=== PATIENT | female | born 1940 | race African-American/Black ===

== ENCOUNTER 2019-01-31 03:22 | Inpatient (IN) | payer MEDICARE, MEDICAID ==
[2019-01-31] VITALS (56 sets, daily range): BP systolic 104–177; BP diastolic 56–97
[~2019-01-31] VITALS: Ht 165.1 cm; Wt 74.5 kg
[~2019-01-31 03:22] MED LIST: AMLO2.5T45 PO; ASPI-1393 PO; FURO40TA5 PO; LEVO50TA8 PO; LISI-186 PO; SIMV20TA6 PO
[2019-01-31] MEDS ORDERED: ALBUTEROL (0.083%) 2.5MG/3ML NEB HHN ONE (03:30)
[2019-01-31] MEDS ORDERED: METHYLPREDNISOLONE SOD SUCC 125 MG/2 ML VIAL IV ONE (03:30)
[2019-01-31] MEDS ORDERED: MAGNESIUM 2 G PREMIX 50 ML IV ONE (03:30)
[2019-01-31] MEDS ORDERED: EPINEPHRINE 1:1000 1 MG/ML AMP INJ ONE (03:30)
[2019-01-31] MEDS ORDERED: IPRATROPIUM BROMIDE (0.02%) 0.5MG/2.5ML NEB HHN ONE (03:30)
[2019-01-31] MEDS ORDERED: SUCCINYLCHOLINE CHLORIDE 200MG/10ML IV ONE ×2 (03:45)
[2019-01-31] MEDS ORDERED: PROPOFOL 10MG/ML 100ML 100 ML IV ONE (03:45)
[2019-01-31] MEDS ORDERED: ETOMIDATE 2MG/ML 10ML VIAL IV ONE ×2 (03:45)
[2019-01-31] MEDS ORDERED: PIPERACILLIN/TAZ 3.375G PREMIX 50 ML IV ONE (04:00)
[2019-01-31] MEDS ORDERED: VANCOMYCIN 1 G PREMIX 200 ML IV ONE (04:00)
[2019-01-31] MEDS ORDERED: MIDAZOLAM HCL 50 MG in DEXTROSE 5% WATER 40 ML IV ONE (04:15)
[2019-01-31 04:19] LABS: BASOPHILS % 0.6 % (0.0-2.0); EOSINOPHILS % 0.4 % (0.0-5.0); HEMATOCRIT. 31.1 % (36.0-48.0); HEMOGLOBIN. 9.9 g/dL (12.0-16.0); MEAN CORPUSCULAR HEMOGLOBIN 30.9 pg (28.0-32.0); MEAN PLATELET VOLUME 8.5 fl (7.4-10.4); MONOCYTES % 6.2 % (2.0-8.0); NEUTROPHILS % 66.8 % (40.0-76.0); PLATELET 191 x1000/uL (130-400); RED CELL DISTRIBUTION WIDTH 16.4 % (11.6-14.6)
[2019-01-31 04:22] LABS: CHLORIDE 113 mEq/L (98-107)
[2019-01-31 04:34] LABS: BG BASE EXCESS -7.6 mmol/L (-2.0-2.0); BG CARBOXYHEMOGLOBIN 3.9 % (0.5-1.5); BG DEOXYHEMOGLOBIN 2.8 % (0.0-5.0); BG FRACTION INSPIRED OXYGEN 50; BG HCO3 ACT 22.8 mmol/L (22.0-26.0); BG METHEMOGLOBIN 0.3 % (0.0-1.5); BG OXYGEN SATURATION 97.1 % (92.0-98.5); BG PCO2 75.7 mmHg (35.0-45.0); BG PH 7.096 (7.350-7.450); BG PO2 117.4 mmHg (75.0-100.0); BG SAMPLE SITE LEFT RADIAL; BG TIDAL VOLUME(mL) 450 mL; BG TOTAL HEMOGLOBIN 10.5 g/dL (12.0-18.0); BG VENT MODE VENT - A/C; BG VENT RATE 16 set
[2019-01-31 09:20] LABS: BG BASE EXCESS -0.4 mmol/L (-2.0-2.0); BG CARBOXYHEMOGLOBIN 1.9 % (0.5-1.5); BG FRACTION INSPIRED OXYGEN 50; BG HCO3 ACT 25.5 mmol/L (22.0-26.0); BG METHEMOGLOBIN 0.3 % (0.0-1.5); BG OXYHEMOGLOBIN 95.8 % (94.0-97.0); BG PCO2 47.5 mmHg (35.0-45.0); BG PH 7.347 (7.350-7.450); BG PO2 107.5 mmHg (75.0-100.0); BG SAMPLE SITE RIGHT RADIAL; BG TIDAL VOLUME(mL) 450 mL; BG TOTAL HEMOGLOBIN 9.4 g/dL (12.0-18.0); BG VENT MODE VENT - A/C; BG VENT RATE 20 set
[2019-01-31] MEDS ORDERED: ONDANSETRON HCL 4MG/2ML INJ IV PRN (09:45)
[2019-01-31] MEDS ORDERED: IPRATROPIUM/ALBUTEROL 0.5-3(2.5)MG/3ML NEB HHN PRN (09:45)
[2019-01-31] MEDS ORDERED: FUROSEMIDE 40MG/4ML VIAL IVP ONE (10:00)
[2019-01-31] MEDS: PANTOPRAZOLE SODIUM 40 MG/VIAL IV SCH (10:10)
[2019-01-31] MEDS: MIDAZOLAM HCL 50 MG in DEXTROSE 5% WATER 40 ML IV PRN ×2 (11:25→16:51)
[2019-01-31] MEDS: FENTANYL CITRATE/PF 500 MCG in SODIUM CHLORIDE 0.9% 40 ML IV PRN ×2 (11:25→16:15)
[2019-01-31] MEDS: AMLODIPINE 2.5MG TABLET PO SCH ×2 (12:00→16:32)
[2019-01-31] MEDS: IPRATROPIUM/ALBUTEROL 0.5-3(2.5)MG/3ML NEB HHN SCH ×4 (13:03→23:45)
[2019-01-31 13:06] LABS: CLARITY URINE CLOUDY (CLEAR); COLOR URINE YELLOW (YELLOW); KETONES URINE NEGATIVE (NEGATIVE); LEUKOCYTE ESTERASE URINE NEGATIVE (NEGATIVE); NITRITE URINE NEGATIVE (NEGATIVE); OCCULT BLOOD URINE 3+ (NEGATIVE); PH URINE 5.5 (4.5-8.0); PROTEIN URINE NEGATIVE (NEGATIVE); SPECIFIC GRAVITY URINE 1.007 (1.005-1.030); UROBILINOGEN URINE 0.2 E.U./dL (0.2-1.0)
[2019-01-31 13:23] LABS: *AMPHETAMINES SCREEN URINE NEGATIVE (NEGATIVE); *BENZODIAZEPINES SCREEN URINE PRESUMTIVE POSITIVE (NEGATIVE); *COCAINE SCREEN URINE NEGATIVE (NEGATIVE); METHADONE URINE SCREEN NEGATIVE (NEGATIVE)
[2019-01-31 13:24] LABS: CANNABINOID URINE SCREEN NEGATIVE (NEGATIVE); OPIATES URINE SCREEN NEGATIVE (NEGATIVE); PHENCYCLIDINE URINE SCREEN NEGATIVE (NEGATIVE)
[2019-01-31 13:28] LABS: *BARBITURATES SCREEN URINE NEGATIVE (NEGATIVE)
[2019-01-31] MEDS: METHYLPREDNISOLONE SOD SUCC 40 MG/ML VIAL IV SCH ×2 (16:32→21:55)
[2019-01-31] MEDS: ENOXAPARIN 40MG/0.4ML SYR SUBCUT SCH (16:32)
[2019-02-01] VITALS (46 sets, daily range): BP systolic 94–163; BP diastolic 46–91
[2019-02-01] MEDS: AMLODIPINE 2.5MG TABLET PO SCH ×4 (00:26→18:00)
[2019-02-01] MEDS: MIDAZOLAM HCL 100 MG in DEXT 5% WATER 80 ML IV SCH (01:14)
[2019-02-01] MEDS: FENTANYL CITRATE/PF 1,000 MCG in SODIUM CHLORIDE 0.9% 80 ML IV PRN ×2 (01:14→16:13)
[2019-02-01] MEDS: IPRATROPIUM/ALBUTEROL 0.5-3(2.5)MG/3ML NEB HHN SCH ×6 (03:15→23:44)
[2019-02-01 05:26] LABS: HEMATOCRIT. 26.1 % (36.0-48.0); HEMOGLOBIN. 8.5 g/dL (12.0-16.0); MEAN CORPUSCULAR HEMOGLOBIN 30.7 pg (28.0-32.0); MEAN CORPUSCULAR VOLUME 94.3 fL (81.0-99.0); MEAN PLATELET VOLUME 7.8 fl (7.4-10.4); PLATELET 132 x1000/uL (130-400); RED BLOOD CELL COUNT 2.77 mill/uL (4.2-5.4); RED CELL DISTRIBUTION WIDTH 15.9 % (11.6-14.6)
[2019-02-01 05:42] LABS: PHOSPHORUS 3.1 mg/dL (2.5-4.9)
[2019-02-01 07:41] LABS: BG BASE EXCESS -0.5 mmol/L (-2.0-2.0); BG CARBOXYHEMOGLOBIN 1.1 % (0.5-1.5); BG DEOXYHEMOGLOBIN 2.1 % (0.0-5.0); BG FRACTION INSPIRED OXYGEN 40; BG HCO3 ACT 23.7 mmol/L (22.0-26.0); BG METHEMOGLOBIN 0.2 % (0.0-1.5); BG OXYGEN SATURATION 97.9 % (92.0-98.5); BG OXYHEMOGLOBIN 96.6 % (94.0-97.0); BG PCO2 36.9 mmHg (35.0-45.0); BG PH 7.425 (7.350-7.450); BG PO2 111.7 mmHg (75.0-100.0); BG SAMPLE SITE RIGHT RADIAL; BG TIDAL VOLUME(mL) 500 mL; BG TOTAL HEMOGLOBIN 9.3 g/dL (12.0-18.0); BG VENT MODE VENT - A/C; BG VENT RATE 20 set
[2019-02-01] MEDS: METHYLPREDNISOLONE SOD SUCC 40 MG/ML VIAL IV SCH ×3 (08:09→22:27)
[2019-02-01] MEDS: PANTOPRAZOLE SODIUM 40 MG/VIAL IV SCH (09:14)
[2019-02-01] MEDS ORDERED: FUROSEMIDE 40MG/4ML VIAL IVP NR (10:45)
[2019-02-01] MEDS ORDERED: MAGNESIUM 2 G PREMIX 50 ML IV SCH (14:00)
[2019-02-01] MEDS: ENOXAPARIN 40MG/0.4ML SYR SUBCUT SCH (15:02)
[2019-02-01 15:59] LABS: PLATELET ESTIMATE NORMAL
[2019-02-02] VITALS (40 sets, daily range): BP systolic 125–182; BP diastolic 55–106
[2019-02-02] MEDS: AMLODIPINE 2.5MG TABLET PO SCH ×4 (00:39→18:34)
[2019-02-02] MEDS: IPRATROPIUM/ALBUTEROL 0.5-3(2.5)MG/3ML NEB HHN SCH ×5 (03:58→20:50)
[2019-02-02] MEDS: FENTANYL CITRATE/PF 1,000 MCG in SODIUM CHLORIDE 0.9% 80 ML IV PRN (06:19)
[2019-02-02] MEDS: MIDAZOLAM HCL 100 MG in DEXT 5% WATER 80 ML IV SCH (06:20)
[2019-02-02] MEDS: METHYLPREDNISOLONE SOD SUCC 40 MG/ML VIAL IV SCH ×3 (06:55→22:20)
[2019-02-02 08:25] LABS: BG BASE EXCESS 2.8 mmol/L (-2.0-2.0); BG CARBOXYHEMOGLOBIN 0.3 % (0.5-1.5); BG DEOXYHEMOGLOBIN 2.5 % (0.0-5.0); BG FRACTION INSPIRED OXYGEN 40; BG HCO3 ACT 28.3 mmol/L (22.0-26.0); BG METHEMOGLOBIN 0.4 % (0.0-1.5); BG OXYGEN SATURATION 97.5 % (92.0-98.5); BG OXYHEMOGLOBIN 96.8 % (94.0-97.0); BG PCO2 47.9 mmHg (35.0-45.0); BG PH 7.389 (7.350-7.450); BG PO2 109.1 mmHg (75.0-100.0); BG SAMPLE SITE RIGHT RADIAL; BG TIDAL VOLUME(mL) 500 mL; BG VENT MODE VENT - A/C; BG VENT RATE 20 set
[2019-02-02] MEDS: PANTOPRAZOLE SODIUM 40 MG/VIAL IV SCH (08:35)
[2019-02-02] MEDS: LOSARTAN POTASSIUM 25 MG TABLET PO SCH (09:47)
[2019-02-02 10:52] LABS: BG BASE EXCESS 1.7 mmol/L (-2.0-2.0); BG CARBOXYHEMOGLOBIN 0.3 % (0.5-1.5); BG DEOXYHEMOGLOBIN 3.1 % (0.0-5.0); BG FRACTION INSPIRED OXYGEN 40; BG HCO3 ACT 28.6 mmol/L (22.0-26.0); BG METHEMOGLOBIN 0.1 % (0.0-1.5); BG OXYGEN SATURATION 96.9 % (92.0-98.5); BG OXYHEMOGLOBIN 96.5 % (94.0-97.0); BG PCO2 56.3 mmHg (35.0-45.0); BG PH 7.323 (7.350-7.450); BG PO2 103.3 mmHg (75.0-100.0); BG PRESSURE SUPPORT 8; BG SAMPLE SITE RIGHT RADIAL; BG TOTAL HEMOGLOBIN 10.2 g/dL (12.0-18.0); BG VENT MODE VENT - CPAP
[2019-02-02 11:13] LABS: HEMATOCRIT. 28.6 % (36.0-48.0); HEMOGLOBIN. 9.4 g/dL (12.0-16.0); MEAN CORPUSCULAR HEMOGLOBIN 30.9 pg (28.0-32.0); MEAN CORPUSCULAR VOLUME 93.5 fL (81.0-99.0); MEAN PLATELET VOLUME 8.1 fl (7.4-10.4); PLATELET 175 x1000/uL (130-400); RED BLOOD CELL COUNT 3.05 mill/uL (4.2-5.4); RED CELL DISTRIBUTION WIDTH 16.5 % (11.6-14.6)
[2019-02-02 12:50] LABS: PLATELET ESTIMATE NORMAL
[2019-02-02] MEDS: ENOXAPARIN 40MG/0.4ML SYR SUBCUT SCH (14:31)
[2019-02-02] MEDS: ACETAMINOPHEN 325MG TABLET PO PRN ×2 (20:08→21:08)
[2019-02-03] VITALS (12 sets, daily range): BP systolic 129–155; BP diastolic 63–86
[2019-02-03] MEDS: AMLODIPINE 2.5MG TABLET PO SCH ×2 (00:14→06:00)
[2019-02-03] MEDS: ACETAMINOPHEN 325MG TABLET PO PRN ×4 (01:19→20:27)
[2019-02-03] MEDS: IPRATROPIUM/ALBUTEROL 0.5-3(2.5)MG/3ML NEB HHN SCH ×7 (01:29→23:59)
[2019-02-03] MEDS: METHYLPREDNISOLONE SOD SUCC 40 MG/ML VIAL IV SCH (05:59)
[2019-02-03 06:54] LABS: HEMATOCRIT. 28.5 % (36.0-48.0); HEMOGLOBIN. 9.5 g/dL (12.0-16.0); MEAN CORPUSCULAR HEMOGLOBIN 30.9 pg (28.0-32.0); MEAN CORPUSCULAR VOLUME 93.2 fL (81.0-99.0); MEAN PLATELET VOLUME 8.2 fl (7.4-10.4); PLATELET 193 x1000/uL (130-400); RED BLOOD CELL COUNT 3.06 mill/uL (4.2-5.4); RED CELL DISTRIBUTION WIDTH 16.3 % (11.6-14.6)
[2019-02-03] MEDS: PANTOPRAZOLE SODIUM 40 MG/VIAL IV SCH (08:03)
[2019-02-03] MEDS: LOSARTAN POTASSIUM 25 MG TABLET PO SCH (08:03)
[2019-02-03] MEDS ORDERED: TRAMADOL 50MG TABLET PO PRN (10:15)
[2019-02-03 10:17] LABS: PLATELET ESTIMATE NORMAL
[2019-02-03] MEDS: AMLODIPINE 5MG TABLET PO SCH ×2 (10:58→20:26)
[2019-02-03] MEDS: ENOXAPARIN 40MG/0.4ML SYR SUBCUT SCH (17:24)
[2019-02-03] MEDS: PREDNISONE 20MG TABLET PO SCH (18:43)
[2019-02-03] MEDS: ZOLPIDEM TARTRATE 5MG TABLET PO PRN (22:09)
[2019-02-04] VITALS (13 sets, daily range): BP systolic 120–147; BP diastolic 61–88
[2019-02-04] MEDS: IPRATROPIUM/ALBUTEROL 0.5-3(2.5)MG/3ML NEB HHN SCH ×5 (04:26→20:28)
[2019-02-04 06:42] LABS: HEMATOCRIT. 27.3 % (36.0-48.0); HEMOGLOBIN. 8.9 g/dL (12.0-16.0); MEAN CORPUSCULAR HEMOGLOBIN 30.6 pg (28.0-32.0); MEAN CORPUSCULAR VOLUME 93.2 fL (81.0-99.0); MEAN PLATELET VOLUME 8.1 fl (7.4-10.4); PLATELET 182 x1000/uL (130-400); RED BLOOD CELL COUNT 2.92 mill/uL (4.2-5.4); RED CELL DISTRIBUTION WIDTH 15.9 % (11.6-14.6)
[2019-02-04] MEDS: PREDNISONE 20MG TABLET PO SCH (08:13)
[2019-02-04] MEDS: LOSARTAN POTASSIUM 50 MG TABLET PO SCH (08:13)
[2019-02-04] MEDS: PANTOPRAZOLE SODIUM 40 MG/VIAL IV SCH (08:14)
[2019-02-04 09:41] LABS: NUCLEATED RED BLOOD CELLS 1 /100 WBC; PLATELET ESTIMATE NORMAL
[2019-02-04] MEDS: AMLODIPINE 5MG TABLET PO SCH ×2 (09:53→21:12)
[2019-02-04] MEDS ORDERED: IPRA3AMP9 HHN (14:39)
[2019-02-04] MEDS ORDERED: ALBU18HF2 IH (14:39)
[2019-02-04] MEDS ORDERED: FLUT1DIS3 INH (14:39)
[2019-02-04] MEDS ORDERED: P20 MT (14:40)
[2019-02-04] MEDS: ENOXAPARIN 40MG/0.4ML SYR SUBCUT SCH (15:05)
[2019-02-04] MEDS: ACETAMINOPHEN 325MG TABLET PO PRN (15:52)
[2019-02-04] MEDS: ZOLPIDEM TARTRATE 5MG TABLET PO PRN (22:36)
[2019-02-05] VITALS (11 sets, daily range): BP systolic 118–147; BP diastolic 53–102
[2019-02-05] MEDS: IPRATROPIUM/ALBUTEROL 0.5-3(2.5)MG/3ML NEB HHN SCH ×3 (00:54→09:50)
[2019-02-05] MEDS: ACETAMINOPHEN 325MG TABLET PO PRN (02:40)
[2019-02-05] MEDS: PANTOPRAZOLE SODIUM 40 MG/VIAL IV SCH (08:57)
[2019-02-05] MEDS: LOSARTAN POTASSIUM 50 MG TABLET PO SCH (08:58)
[2019-02-05] MEDS: AMLODIPINE 5MG TABLET PO SCH (08:59)
[2019-02-05] MEDS ORDERED: PREDNISONE 20MG TABLET PO SCH (09:00)
[2019-02-06] MEDS ORDERED: FAMOTIDINE 20MG TABLET PO SCH (09:00)
== END 2019-02-05 11:50 | disposition home health service (06) | DRG 133 ==
LOC: ER 03:22 → CVICU 05:26 → EDBEDREQTM 05:28 → EDBEDREQ 05:28 → ENRESERV 07:34 → 3WST 02-02 17:26
PROVIDERS: ADMIT Internal Medicine; ATTEND Internal Medicine
PROC: 5A1945Z Respiratory Ventilation, 24-96 Consecutive Hours (ICD-10-PCS; principal; 2019-01-31)
PROC: 0BH17EZ Insertion of Endotracheal Airway into Trachea, Via Natural or Artificial Opening (ICD-10-PCS; 2019-01-31)
DX: J96.01 Acute respiratory failure with hypoxia (principal); I50.43 Acute on chronic combined systolic (congestive) and diastolic (congestive) heart failure; J44.1 Chronic obstructive pulmonary disease with (acute) exacerbation; E87.2 Acidosis; I27.20 Pulmonary hypertension, unspecified; E87.8 Other disorders of electrolyte and fluid balance, not elsewhere classified; E03.9 Hypothyroidism, unspecified; E66.9 Obesity, unspecified; E78.5 Hyperlipidemia, unspecified; D64.9 Anemia, unspecified; E78.00 Pure hypercholesterolemia, unspecified; I11.0 Hypertensive heart disease with heart failure; J96.02 Acute respiratory failure with hypercapnia; K21.9 Gastro-esophageal reflux disease without esophagitis; I07.1 Rheumatic tricuspid insufficiency; I42.9 Cardiomyopathy, unspecified; M48.061 Spinal stenosis, lumbar region without neurogenic claudication; N28.9 Disorder of kidney and ureter, unspecified; Z72.0 Tobacco use; Z78.1 Physical restraint status; Z93.3 Colostomy status; Z99.81 Dependence on supplemental oxygen; Z79.899 Other long term (current) drug therapy; Z79.82 Long term (current) use of aspirin; Z68.27 Body mass index [BMI] 27.0-27.9, adult
CPT/HCPCS: 36415; 36600; 71045; 80048; 80061; 80305; 81003; 82375; 82728; 82805; 83036; 83540; 83550; 83605; 83735; 83880; 84100; 84145; 84443; 84484; 87070; 92610; 93005; 93306; 93970; 94002; 94003; 94640; 96374; 97162; 99285; C9113; J0330; J1650; J1940; J2250; J2543; J2704; J2920; J2930; J3010; J3370; J3475; J3490; J7060; J7512; J7620

== ENCOUNTER 2019-04-24 19:26 | Inpatient (IN) | payer MEDICARE, MEDICAID ==
[~2019-04-24] VITALS: Ht 165.1 cm; Wt 82.1 kg
[~2019-04-24 19:26] MED LIST changes: +ALBU18HF2 IH; -ASPI-1393 PO; +ASPI-1497 PO; +FLUT1DIS3 INH; +IPRA3AMP9 HHN; -LISI-186 PO; +P20 MT; +SIMV-43 PO; -SIMV20TA6 PO
[2019-04-24] MEDS ORDERED: ALBUTEROL (0.083%) 2.5MG/3ML NEB HHN STA (19:28)
[2019-04-24] MEDS ORDERED: ASPIRIN 81MG TABLET PO ONE (19:30)
[2019-04-24] MEDS ORDERED: NITROGLYCERIN 0.4MG TABLET SL SL PRN (19:30)
[2019-04-24] MEDS ORDERED: NITROGLYCERIN OINT 1GM/INCH UDPKT TD ONE (19:30)
[2019-04-24 20:01] LABS: CHLORIDE 107 mEq/L (98-107)
[2019-04-24 20:05] LABS: EOSINOPHILS % 0.6 % (0.0-5.0); HEMATOCRIT. 30.5 % (36.0-48.0); HEMOGLOBIN. 9.7 g/dL (12.0-16.0); LYMPHOCYTES % 15.6 % (20.0-50.0); MEAN CORPUSCULAR HEMOGLOBIN 30.5 pg (28.0-32.0); MEAN CORPUSCULAR VOLUME 96.2 fL (81.0-99.0); MEAN PLATELET VOLUME 7.2 fl (7.4-10.4); MONOCYTES % 8.3 % (2.0-8.0); NEUTROPHILS % 74.5 % (40.0-76.0); PLATELET 188 x1000/uL (130-400); RED BLOOD CELL COUNT 3.17 mill/uL (4.2-5.4); RED CELL DISTRIBUTION WIDTH 15.9 % (11.6-14.6)
[2019-04-24 20:43] LABS: BG BILEVEL POS AIRWAY PRESSURE 15/5; BG CARBOXYHEMOGLOBIN 0.6 % (0.5-1.5); BG DEOXYHEMOGLOBIN 1.2 % (0.0-5.0); BG FRACTION INSPIRED OXYGEN 60; BG HCO3 ACT 32.6 mmol/L (22.0-26.0); BG METHEMOGLOBIN 0.3 % (0.0-1.5); BG OXYGEN SATURATION 98.8 % (92.0-98.5); BG OXYHEMOGLOBIN 97.9 % (94.0-97.0); BG PCO2 95.1 mmHg (35.0-45.0); BG PH 7.153 (7.350-7.450); BG SAMPLE SITE RIGHT RADIAL; BG TIDAL VOLUME(mL) 410 mL; BG TOTAL HEMOGLOBIN 10.1 g/dL (12.0-18.0); BG VENT MODE MASK - BIPAP; BG VENT RATE 16 set
[2019-04-24] MEDS ORDERED: ETOMIDATE 2MG/ML 10ML VIAL IV ONE ×2 (21:00→21:45)
[2019-04-24] MEDS ORDERED: SUCCINYLCHOLINE CHLORIDE 200MG/10ML IV ONE (21:00)
[2019-04-24] MEDS ORDERED: MIDAZOLAM HCL 50 MG in DEXTROSE 5% WATER 40 ML IV PRN (21:15)
[2019-04-24] MEDS ORDERED: MIDAZOLAM HCL 2 MG/2 ML VIAL IV ONE ×2 (21:15→21:30)
[2019-04-24] MEDS ORDERED: MIDAZOLAM HCL 50 MG in DEXTROSE 5% WATER 40 ML IV ONE (21:15)
[2019-04-24] MEDS ORDERED: MIDAZOLAM HCL 2 MG/2 ML VIAL ONE (21:32)
[2019-04-24 23:30] VITALS: BP_SYST 141; BP_SYST 147; BP_DIAS 68; BP_DIAS 72
[2019-04-25] VITALS (81 sets, daily range): BP systolic 95–176; BP diastolic 49–99
[2019-04-25] LABS: BG BASE EXCESS 4.5 mmol/L (-2.0-2.0); BG CARBOXYHEMOGLOBIN 0.4 % (0.5-1.5); BG DEOXYHEMOGLOBIN 3.7 % (0.0-5.0); BG FRACTION INSPIRED OXYGEN 40; BG HCO3 ACT 32.1 mmol/L (22.0-26.0); BG METHEMOGLOBIN 0.3 % (0.0-1.5); BG OXYGEN SATURATION 96.3 % (92.0-98.5); BG OXYHEMOGLOBIN 95.6 % (94.0-97.0); BG PCO2 65.9 mmHg (35.0-45.0); BG PH 7.305 (7.350-7.450); BG PO2 89.3 mmHg (75.0-100.0); BG SAMPLE SITE RIGHT RADIAL; BG TIDAL VOLUME(mL) 500 mL; BG TOTAL HEMOGLOBIN 9.7 g/dL (12.0-18.0); BG VENT MODE VENT - A/C; BG VENT RATE 16 set
[2019-04-25] MEDS ORDERED: ONDANSETRON HCL 4MG/2ML INJ IV PRN (00:15)
[2019-04-25] MEDS ORDERED: MIDAZOLAM HCL 50 MG in DEXTROSE 5% WATER 40 ML IV PRN (00:30)
[2019-04-25] MEDS: METRONIDAZOLE 500 MG PREMIX 100 ML IV SCH ×3 (01:52→17:29)
[2019-04-25] MEDS: METHYLPREDNISOLONE SOD SUCC 40 MG/ML VIAL IV SCH ×3 (01:53→17:29)
[2019-04-25] MEDS ORDERED: DEXT 5%/0.45% NACL KCL 20MEQ/L 1,000 ML IV SCH (02:00)
[2019-04-25] MEDS: CEFEPIME 1,000 MG in DEXTROSE 5% WATER 50 ML IV SCH (03:23)
[2019-04-25 03:24] LABS: BG BASE EXCESS 5.5 mmol/L (-2.0-2.0); BG CARBOXYHEMOGLOBIN 0.3 % (0.5-1.5); BG DEOXYHEMOGLOBIN 11.9 % (0.0-5.0); BG FRACTION INSPIRED OXYGEN 40; BG HCO3 ACT 29.4 mmol/L (22.0-26.0); BG METHEMOGLOBIN 0.3 % (0.0-1.5); BG OXYHEMOGLOBIN 87.5 % (94.0-97.0); BG PH 7.484 (7.350-7.450); BG PO2 47.1 mmHg (75.0-100.0); BG SAMPLE SITE RIGHT BRACHIAL; BG TIDAL VOLUME(mL) 500 mL; BG TOTAL HEMOGLOBIN 8.6 g/dL (12.0-18.0); BG VENT MODE VENT - A/C; BG VENT RATE 22 set
[2019-04-25 03:53] LABS: BG BASE EXCESS 3.4 mmol/L (-2.0-2.0); BG CARBOXYHEMOGLOBIN 0.4 % (0.5-1.5); BG DEOXYHEMOGLOBIN 1.2 % (0.0-5.0); BG FRACTION INSPIRED OXYGEN 40; BG HCO3 ACT 26.5 mmol/L (22.0-26.0); BG METHEMOGLOBIN 0.2 % (0.0-1.5); BG OXYGEN SATURATION 98.8 % (92.0-98.5); BG OXYHEMOGLOBIN 98.2 % (94.0-97.0); BG PCO2 34.5 mmHg (35.0-45.0); BG PH 7.503 (7.350-7.450); BG PO2 136.4 mmHg (75.0-100.0); BG SAMPLE SITE RIGHT RADIAL; BG TIDAL VOLUME(mL) 500 mL; BG TOTAL HEMOGLOBIN 9.4 g/dL (12.0-18.0); BG VENT MODE VENT - A/C; BG VENT RATE 22 set
[2019-04-25] MEDS: FENTANYL CITRATE/PF 500 MCG in SODIUM CHLORIDE 0.9% 40 ML IV PRN ×3 (05:24→20:55)
[2019-04-25 07:21] LABS: BASOPHILS % 0.7 % (0.0-2.0); EOSINOPHILS % 0.6 % (0.0-5.0); HEMATOCRIT. 29.7 % (36.0-48.0); HEMOGLOBIN. 9.6 g/dL (12.0-16.0); MEAN CORPUSCULAR HEMOGLOBIN 30.7 pg (28.0-32.0); MEAN CORPUSCULAR VOLUME 95.5 fL (81.0-99.0); MEAN PLATELET VOLUME 7.9 fl (7.4-10.4); MONOCYTES % 5.2 % (2.0-8.0); NEUTROPHILS % 83.5 % (40.0-76.0); PLATELET 183 x1000/uL (130-400); RED BLOOD CELL COUNT 3.11 mill/uL (4.2-5.4); RED CELL DISTRIBUTION WIDTH 15.8 % (11.6-14.6)
[2019-04-25] MEDS: IPRATROPIUM/ALBUTEROL 0.5-3(2.5)MG/3ML NEB HHN SCH ×4 (07:40→20:33)
[2019-04-25] MEDS: PANTOPRAZOLE SODIUM 40 MG/VIAL IV SCH (08:28)
[2019-04-25] MEDS: LEVOTHYROXINE SODIUM 50MCG TABLET PO SCH (08:28)
[2019-04-25] MEDS: ASPIRIN 81MG TABLET NG SCH (08:28)
[2019-04-25] MEDS ORDERED: FOLIC ACID/VITAMIN B COMP W-C TABLET PO SCH (09:00)
[2019-04-25] MEDS ORDERED: CEFEPIME HCL 1000MG/VIAL INJ IM SCH (09:00)
[2019-04-25] MEDS: FUROSEMIDE 40MG/4ML VIAL IVP SCH (11:55)
[2019-04-25 12:23] LABS: CLARITY URINE CLEAR (CLEAR); COLOR URINE YELLOW (YELLOW); KETONES URINE NEGATIVE (NEGATIVE); LEUKOCYTE ESTERASE URINE TRACE (NEGATIVE); NITRITE URINE POSITIVE (NEGATIVE); OCCULT BLOOD URINE 3+ (NEGATIVE); PROTEIN URINE 1+ (NEGATIVE); SPECIFIC GRAVITY URINE 1.014 (1.005-1.030); UROBILINOGEN URINE 0.2 E.U./dL (0.2-1.0)
[2019-04-25 13:07] LABS: *BENZODIAZEPINES SCREEN URINE PRESUMTIVE POSITIVE (NEGATIVE); *COCAINE SCREEN URINE NEGATIVE (NEGATIVE); METHADONE URINE SCREEN NEGATIVE (NEGATIVE); OPIATES URINE SCREEN NEGATIVE (NEGATIVE); PHENCYCLIDINE URINE SCREEN NEGATIVE (NEGATIVE)
[2019-04-25 13:08] LABS: *AMPHETAMINES SCREEN URINE NEGATIVE (NEGATIVE); *BARBITURATES SCREEN URINE NEGATIVE (NEGATIVE); CANNABINOID URINE SCREEN NEGATIVE (NEGATIVE)
[2019-04-25] MEDS: ATORVASTATIN CALCIUM 20MG TABLET PO SCH (22:31)
[2019-04-26] VITALS (47 sets, daily range): BP systolic 128–176; BP diastolic 57–136
[2019-04-26] MEDS: IPRATROPIUM/ALBUTEROL 0.5-3(2.5)MG/3ML NEB HHN SCH ×6 (00:20→20:30)
[2019-04-26] MEDS: METHYLPREDNISOLONE SOD SUCC 40 MG/ML VIAL IV SCH ×3 (02:14→17:07)
[2019-04-26] MEDS: METRONIDAZOLE 500 MG PREMIX 100 ML IV SCH ×3 (02:14→17:07)
[2019-04-26] MEDS: CEFEPIME 1,000 MG in DEXTROSE 5% WATER 50 ML IV SCH (03:04)
[2019-04-26 06:18] LABS: BASOPHILS % 0.1 % (0.0-2.0); EOSINOPHILS % 0.1 % (0.0-5.0); HEMATOCRIT. 29.3 % (36.0-48.0); HEMOGLOBIN. 9.7 g/dL (12.0-16.0); LYMPHOCYTES % 7.2 % (20.0-50.0); MEAN CORPUSCULAR HEMOGLOBIN 31.1 pg (28.0-32.0); MEAN CORPUSCULAR VOLUME 93.4 fL (81.0-99.0); MEAN PLATELET VOLUME 7.9 fl (7.4-10.4); NEUTROPHILS % 86.6 % (40.0-76.0); PLATELET 195 x1000/uL (130-400); RED BLOOD CELL COUNT 3.13 mill/uL (4.2-5.4); RED CELL DISTRIBUTION WIDTH 15.2 % (11.6-14.6)
[2019-04-26] MEDS: FENTANYL CITRATE/PF 500 MCG in SODIUM CHLORIDE 0.9% 40 ML IV PRN ×2 (06:54→20:17)
[2019-04-26 07:54] LABS: BG BASE EXCESS 3.3 mmol/L (-2.0-2.0); BG CARBOXYHEMOGLOBIN 0.2 % (0.5-1.5); BG DEOXYHEMOGLOBIN 3.7 % (0.0-5.0); BG HCO3 ACT 27.3 mmol/L (22.0-26.0); BG METHEMOGLOBIN 0.1 % (0.0-1.5); BG OXYGEN SATURATION 96.3 % (92.0-98.5); BG PCO2 39.3 mmHg (35.0-45.0); BG PO2 87.6 mmHg (75.0-100.0); BG SAMPLE SITE RIGHT RADIAL; BG TIDAL VOLUME(mL) 500 mL; BG TOTAL HEMOGLOBIN 10.5 g/dL (12.0-18.0); BG VENT MODE VENT - A/C; BG VENT RATE 22 set
[2019-04-26] MEDS: FUROSEMIDE 40MG/4ML VIAL IVP SCH (08:34)
[2019-04-26] MEDS: LEVOTHYROXINE SODIUM 50MCG TABLET PO SCH (08:34)
[2019-04-26] MEDS: ASPIRIN 81MG TABLET NG SCH (08:34)
[2019-04-26] MEDS: PANTOPRAZOLE SODIUM 40 MG/VIAL IV SCH (08:34)
[2019-04-26] MEDS ORDERED: CLONIDINE 0.1MG TABLET PO PRN (11:30)
[2019-04-26 13:45] LABS: BG BASE EXCESS 3.6 mmol/L (-2.0-2.0); BG CARBOXYHEMOGLOBIN 0.2 % (0.5-1.5); BG DEOXYHEMOGLOBIN 2.5 % (0.0-5.0); BG FRACTION INSPIRED OXYGEN 35; BG HCO3 ACT 28.5 mmol/L (22.0-26.0); BG OXYGEN SATURATION 97.5 % (92.0-98.5); BG OXYHEMOGLOBIN 97.3 % (94.0-97.0); BG PH 7.429 (7.350-7.450); BG PO2 103.1 mmHg (75.0-100.0); BG PRESSURE SUPPORT 14; BG SAMPLE SITE RIGHT RADIAL; BG TIDAL VOLUME(mL) 500 mL; BG TOTAL HEMOGLOBIN 12.9 g/dL (12.0-18.0); BG VENT MODE VENT - SIMV; BG VENT RATE 12 set
[2019-04-26] MEDS: ENOXAPARIN 30MG/0.3ML SYR SUBCUT SCH (17:08)
[2019-04-26] MEDS: ATORVASTATIN CALCIUM 20MG TABLET PO SCH (21:33)
[2019-04-27] VITALS (39 sets, daily range): BP systolic 108–154; BP diastolic 31–114
[2019-04-27] MEDS: IPRATROPIUM/ALBUTEROL 0.5-3(2.5)MG/3ML NEB HHN SCH ×6 (00:28→20:18)
[2019-04-27] MEDS: CEFEPIME 1,000 MG in DEXTROSE 5% WATER 50 ML IV SCH (02:19)
[2019-04-27] MEDS: METRONIDAZOLE 500 MG PREMIX 100 ML IV SCH ×3 (02:19→17:00)
[2019-04-27] MEDS: METHYLPREDNISOLONE SOD SUCC 40 MG/ML VIAL IV SCH ×3 (03:33→17:00)
[2019-04-27] MEDS: FENTANYL CITRATE/PF 500 MCG in SODIUM CHLORIDE 0.9% 40 ML IV PRN (05:37)
[2019-04-27 05:44] LABS: HEMATOCRIT. 29.7 % (36.0-48.0); HEMOGLOBIN. 9.7 g/dL (12.0-16.0); MEAN CORPUSCULAR HEMOGLOBIN 30.5 pg (28.0-32.0); MEAN CORPUSCULAR VOLUME 93.7 fL (81.0-99.0); MEAN PLATELET VOLUME 7.8 fl (7.4-10.4); PLATELET 188 x1000/uL (130-400); RED BLOOD CELL COUNT 3.17 mill/uL (4.2-5.4); RED CELL DISTRIBUTION WIDTH 16.1 % (11.6-14.6)
[2019-04-27] MEDS: LEVOTHYROXINE SODIUM 50MCG TABLET PO SCH (08:47)
[2019-04-27] MEDS: ASPIRIN 81MG TABLET NG SCH (08:48)
[2019-04-27] MEDS: MORPHINE SULFATE 2 MG/ML CPJ (NOT FOR IM USE) IV PRN ×2 (08:48→16:59)
[2019-04-27] MEDS: PANTOPRAZOLE SODIUM 40 MG/VIAL IV SCH (08:48)
[2019-04-27] MEDS: FUROSEMIDE 40MG/4ML VIAL IVP SCH (08:48)
[2019-04-27 13:19] LABS: PLATELET ESTIMATE NORMAL
[2019-04-27] MEDS: ENOXAPARIN 30MG/0.3ML SYR SUBCUT SCH (16:59)
[2019-04-27] MEDS: ATORVASTATIN CALCIUM 20MG TABLET PO SCH (20:39)
[2019-04-28] VITALS (25 sets, daily range): BP systolic 108–164; BP diastolic 51–87
[2019-04-28] MEDS: IPRATROPIUM/ALBUTEROL 0.5-3(2.5)MG/3ML NEB HHN SCH ×5 (00:01→20:15)
[2019-04-28] MEDS: CEFEPIME 1,000 MG in DEXTROSE 5% WATER 50 ML IV SCH (03:17)
[2019-04-28] MEDS: METHYLPREDNISOLONE SOD SUCC 40 MG/ML VIAL IV SCH ×2 (03:17→09:48)
[2019-04-28] MEDS: METRONIDAZOLE 500 MG PREMIX 100 ML IV SCH ×3 (03:17→20:37)
[2019-04-28 06:35] LABS: HEMATOCRIT. 28.4 % (36.0-48.0); HEMOGLOBIN. 9.4 g/dL (12.0-16.0); LYMPHOCYTES % 7.5 % (20.0-50.0); MEAN CORPUSCULAR VOLUME 93.8 fL (81.0-99.0); MEAN PLATELET VOLUME 7.9 fl (7.4-10.4); MONOCYTES % 6.4 % (2.0-8.0); NEUTROPHILS % 86.1 % (40.0-76.0); PLATELET 187 x1000/uL (130-400); RED BLOOD CELL COUNT 3.03 mill/uL (4.2-5.4); RED CELL DISTRIBUTION WIDTH 16.1 % (11.6-14.6)
[2019-04-28 09:48] LABS: BG BASE EXCESS 3.1 mmol/L (-2.0-2.0); BG CARBOXYHEMOGLOBIN 0.1 % (0.5-1.5); BG DEOXYHEMOGLOBIN 4.3 % (0.0-5.0); BG FRACTION INSPIRED OXYGEN 32; BG HCO3 ACT 29.7 mmol/L (22.0-26.0); BG METHEMOGLOBIN 0.3 % (0.0-1.5); BG OXYGEN SATURATION 95.7 % (92.0-98.5); BG OXYHEMOGLOBIN 95.3 % (94.0-97.0); BG PCO2 54.8 mmHg (35.0-45.0); BG PH 7.352 (7.350-7.450); BG PO2 86.2 mmHg (75.0-100.0); BG SAMPLE SITE RIGHT RADIAL; BG TOTAL HEMOGLOBIN 11.5 g/dL (12.0-18.0); BG VENT MODE NASAL CANNULA
[2019-04-28] MEDS: LEVOTHYROXINE SODIUM 50MCG TABLET PO SCH (09:48)
[2019-04-28] MEDS: ASPIRIN 81MG TABLET NG SCH (09:48)
[2019-04-28] MEDS: PANTOPRAZOLE SODIUM 40 MG/VIAL IV SCH (09:48)
[2019-04-28 09:49] LABS: BG BASE EXCESS 4.4 mmol/L (-2.0-2.0); BG CARBOXYHEMOGLOBIN 0.3 % (0.5-1.5); BG DEOXYHEMOGLOBIN 3.1 % (0.0-5.0); BG FRACTION INSPIRED OXYGEN 35; BG HCO3 ACT 30.3 mmol/L (22.0-26.0); BG METHEMOGLOBIN 0.2 % (0.0-1.5); BG OXYGEN SATURATION 96.9 % (92.0-98.5); BG OXYHEMOGLOBIN 96.4 % (94.0-97.0); BG PCO2 51.8 mmHg (35.0-45.0); BG PH 7.385 (7.350-7.450); BG PO2 101.9 mmHg (75.0-100.0); BG PRESSURE SUPPORT 10; BG SAMPLE SITE RIGHT RADIAL; BG TOTAL HEMOGLOBIN 10.7 g/dL (12.0-18.0); BG VENT MODE VENT - CPAP
[2019-04-28 09:49] LABS: BG BASE EXCESS 4.2 mmol/L (-2.0-2.0); BG CARBOXYHEMOGLOBIN 0.3 % (0.5-1.5); BG DEOXYHEMOGLOBIN 3.4 % (0.0-5.0); BG FRACTION INSPIRED OXYGEN 35; BG HCO3 ACT 29.9 mmol/L (22.0-26.0); BG OXYGEN SATURATION 96.6 % (92.0-98.5); BG OXYHEMOGLOBIN 96.3 % (94.0-97.0); BG PCO2 50.1 mmHg (35.0-45.0); BG PH 7.394 (7.350-7.450); BG PO2 98.5 mmHg (75.0-100.0); BG PRESSURE SUPPORT 10; BG SAMPLE SITE RIGHT RADIAL; BG TOTAL HEMOGLOBIN 10.7 g/dL (12.0-18.0); BG VENT MODE VENT - CPAP
[2019-04-28 09:50] LABS: BG BASE EXCESS 3.7 mmol/L (-2.0-2.0); BG CARBOXYHEMOGLOBIN 0.3 % (0.5-1.5); BG FRACTION INSPIRED OXYGEN 35; BG HCO3 ACT 29.3 mmol/L (22.0-26.0); BG METHEMOGLOBIN 0.2 % (0.0-1.5); BG OXYHEMOGLOBIN 96.5 % (94.0-97.0); BG PCO2 48.9 mmHg (35.0-45.0); BG PH 7.395 (7.350-7.450); BG PO2 100.6 mmHg (75.0-100.0); BG SAMPLE SITE RIGHT RADIAL; BG TOTAL HEMOGLOBIN 10.7 g/dL (12.0-18.0); BG VENT MODE MASK - BIPAP; BG VENT RATE 14 set
[2019-04-28] MEDS: FUROSEMIDE 20MG/2ML VIAL IVP SCH (11:56)
[2019-04-28] MEDS: PREDNISONE 20MG TABLET PO SCH (16:55)
[2019-04-28] MEDS: ATORVASTATIN CALCIUM 20MG TABLET PO SCH (22:13)
[2019-04-29] VITALS: BP 116/76
[2019-04-29] MEDS: IPRATROPIUM/ALBUTEROL 0.5-3(2.5)MG/3ML NEB HHN SCH ×6 (00:53→20:22)
[2019-04-29] MEDS: METRONIDAZOLE 500 MG PREMIX 100 ML IV SCH ×3 (02:06→17:51)
[2019-04-29 04:00] VITALS: BP 137/94
[2019-04-29] MEDS: CEFEPIME 1,000 MG in DEXTROSE 5% WATER 50 ML IV SCH (04:28)
[2019-04-29] MEDS: LEVOTHYROXINE SODIUM 50MCG TABLET PO SCH (06:15)
[2019-04-29 06:59] LABS: HEMATOCRIT. 28.2 % (36.0-48.0); HEMOGLOBIN. 9.3 g/dL (12.0-16.0); MEAN CORPUSCULAR HEMOGLOBIN 30.9 pg (28.0-32.0); MEAN CORPUSCULAR VOLUME 93.3 fL (81.0-99.0); MEAN PLATELET VOLUME 8.2 fl (7.4-10.4); PLATELET 172 x1000/uL (130-400); RED BLOOD CELL COUNT 3.02 mill/uL (4.2-5.4); RED CELL DISTRIBUTION WIDTH 15.7 % (11.6-14.6)
[2019-04-29 07:54] LABS: PLATELET ESTIMATE NORMAL
[2019-04-29 08:00] VITALS: BP 134/62
[2019-04-29] MEDS: ASPIRIN 81MG TABLET NG SCH (08:22)
[2019-04-29] MEDS: FUROSEMIDE 20MG/2ML VIAL IVP SCH (08:22)
[2019-04-29] MEDS: PREDNISONE 20MG TABLET PO SCH (08:22)
[2019-04-29] MEDS: PANTOPRAZOLE SODIUM 40 MG/VIAL IV SCH (08:22)
[2019-04-29 12:00] VITALS: BP 157/77
[2019-04-29] MEDS ORDERED: MONT10TA21 MT (14:01)
[2019-04-29] MEDS ORDERED: FURO-151 MT (14:01)
[2019-04-29] MEDS ORDERED: FLUT1DIS3 INH (14:01)
[2019-04-29] MEDS ORDERED: P20 MT (14:01)
[2019-04-29] MEDS ORDERED: ALBU18HF2 IH (14:01)
[2019-04-29 16:00] VITALS: BP 148/49
[2019-04-29] MEDS: MONTELUKAST SODIUM 10MG TABLET PO SCH (17:48)
[2019-04-29 20:00] VITALS: BP 138/66
[2019-04-29] MEDS: ATORVASTATIN CALCIUM 20MG TABLET PO SCH (20:45)
[2019-04-29] MEDS: FLUTICASONE PROPIONATE 50MCG/SPRAY BOTTLE BOTHNSTRLS SCH (20:46)
[2019-04-30] VITALS: BP 151/70
[2019-04-30] MEDS: IPRATROPIUM/ALBUTEROL 0.5-3(2.5)MG/3ML NEB HHN SCH ×5 (00:08→17:03)
[2019-04-30] MEDS: METRONIDAZOLE 500 MG PREMIX 100 ML IV SCH ×2 (02:16→09:51)
[2019-04-30] MEDS: CEFEPIME 1,000 MG in DEXTROSE 5% WATER 50 ML IV SCH (03:36)
[2019-04-30 04:00] VITALS: BP_SYST 119; BP_SYST 142; BP_DIAS 51; BP_DIAS 72
[2019-04-30] MEDS: LEVOTHYROXINE SODIUM 50MCG TABLET PO SCH (06:19)
[2019-04-30] MEDS ORDERED: PANTOPRAZOLE 40MG DR TABLET PO SCH (06:45)
[2019-04-30] MEDS ORDERED: PREDNISONE 20MG TABLET PO SCH (07:15)
[2019-04-30] MEDS: FUROSEMIDE 20MG/2ML VIAL IVP SCH (08:39)
[2019-04-30] MEDS: ASPIRIN 81MG TABLET NG SCH (08:40)
[2019-04-30] MEDS: FLUTICASONE PROPIONATE 50MCG/SPRAY BOTTLE BOTHNSTRLS SCH (09:50)
[2019-04-30 12:18] VITALS: BP 158/78
[2019-04-30 15:59] VITALS: BP 125/56
[2019-04-30] MEDS ORDERED: METRONIDAZOLE 500MG TABLET PO SCH (16:00)
[2019-04-30] MEDS: MONTELUKAST SODIUM 10MG TABLET PO SCH (17:43)
[2019-04-30 17:47] VITALS: BP 125/56
== END 2019-04-30 18:40 | disposition home health service (06) | DRG 133 ==
LOC: ER 19:26 → EDBEDREQTM 21:19 → EDBEDREQ 21:19 → CVICU 21:19 → EDBEDREQSVC 21:19 → EDBEDREQ 21:20 → ENRESERV 22:44 → 5WST 04-28 12:19
PROVIDERS: ADMIT Internal Medicine; ATTEND Internal Medicine
PROC: 5A09357 Assistance with Respiratory Ventilation, Less than 24 Consecutive Hours, Continuous Positive Airway Pressure (ICD-10-PCS; principal; 2019-04-24)
PROC: 5A1945Z Respiratory Ventilation, 24-96 Consecutive Hours (ICD-10-PCS; 2019-04-24)
PROC: 0BH17EZ Insertion of Endotracheal Airway into Trachea, Via Natural or Artificial Opening (ICD-10-PCS; 2019-04-24)
PROC: 5A09357 Assistance with Respiratory Ventilation, Less than 24 Consecutive Hours, Continuous Positive Airway Pressure (ICD-10-PCS; 2019-04-27)
PROC: 5A09357 Assistance with Respiratory Ventilation, Less than 24 Consecutive Hours, Continuous Positive Airway Pressure (ICD-10-PCS; 2019-04-28)
DX: J96.22 Acute and chronic respiratory failure with hypercapnia (principal); I50.23 Acute on chronic systolic (congestive) heart failure; J84.9 Interstitial pulmonary disease, unspecified; N17.9 Acute kidney failure, unspecified; I27.20 Pulmonary hypertension, unspecified; J44.1 Chronic obstructive pulmonary disease with (acute) exacerbation; I42.9 Cardiomyopathy, unspecified; D64.9 Anemia, unspecified; E78.5 Hyperlipidemia, unspecified; E03.9 Hypothyroidism, unspecified; E66.9 Obesity, unspecified; E78.00 Pure hypercholesterolemia, unspecified; E87.2 Acidosis; I13.0 Hypertensive heart and chronic kidney disease with heart failure and stage 1 through stage 4 chronic kidney disease, or unspecified chronic kidney disease; N18.3 Chronic kidney disease, stage 3 (moderate); I50.32 Chronic diastolic (congestive) heart failure; J00 Acute nasopharyngitis [common cold]; K21.9 Gastro-esophageal reflux disease without esophagitis; Z79.51 Long term (current) use of inhaled steroids; Z79.890 Hormone replacement therapy; Z79.899 Other long term (current) drug therapy; Z93.3 Colostomy status; Z99.81 Dependence on supplemental oxygen; Z79.82 Long term (current) use of aspirin; Z68.30 Body mass index [BMI] 30.0-30.9, adult
CPT/HCPCS: 36415; 36600; 71045; 80048; 80053; 80305; 81003; 82375; 82805; 83880; 84443; 84484; 85025; 87070; 87804; 92610; 93005; 94002; 94003; 94640; 94660; 96365; 96375; 97116; 97162; 97166; 99291; C1893; C9113; J0692; J1650; J1940; J2250; J2270; J2920; J3010; J3490; J7060; J7512

== ENCOUNTER 2019-10-05 23:23 | Inpatient (IN) | payer MEDICARE, MEDICAID ==
[~2019-10-05] VITALS: Ht 152.4 cm; Wt 93.4 kg
[~2019-10-05 23:23] MED LIST changes: +FURO-151 MT; +MONT10TA21 MT
[2019-10-06] VITALS (64 sets, daily range): BP systolic 71–136; BP diastolic 42–112
[2019-10-06] MEDS ORDERED: SODIUM CHLORIDE 0.9% 1000ML BAG (SEPSIS BOLUS) IV ONE (01:00)
[2019-10-06 01:12] LABS: BASOPHILS % 0.6 % (0.0-2.0); EOSINOPHILS % 0.3 % (0.0-5.0); HEMATOCRIT. 31.2 % (36.0-48.0); HEMOGLOBIN. 9.9 g/dL (12.0-16.0); LYMPHOCYTES % 15.6 % (20.0-50.0); MEAN CORPUSCULAR HEMOGLOBIN 30.6 pg (28.0-32.0); MEAN CORPUSCULAR VOLUME 96.8 fL (81.0-99.0); MONOCYTES % 9.5 % (2.0-8.0); PLATELET 244 x1000/uL (130-400); RED BLOOD CELL COUNT 3.22 mill/uL (4.2-5.4)
[2019-10-06 01:17] LABS: CHLORIDE 108 mEq/L (98-107)
[2019-10-06 01:21] LABS: ETHANOL BLOOD < 10 mg/dL
[2019-10-06 01:25] LABS: CREATINE KINASE 753 IU/L (26-192)
[2019-10-06] MEDS ORDERED: SODIUM CHLORIDE 0.9% 1,000 ML IV ONE (01:30)
[2019-10-06] MEDS ORDERED: DEXTROSE 50% WATER 50ML SYRINGE IV NR ×3 (01:30→09:00)
[2019-10-06] MEDS ORDERED: CALCIUM CHLORIDE 1GM/10ML SYR IV ONE (01:30)
[2019-10-06] MEDS ORDERED: INSULIN REGULAR (HUMULIN R) 300UNITS/3ML IV ONE (01:30)
[2019-10-06] MEDS ORDERED: DEXTROSE 50% WATER 50ML SYRINGE IV ONE (01:30)
[2019-10-06] MEDS ORDERED: SODIUM BICARBONATE 8.4% 1 MEQ/ML 50ML SYR IV ONE (01:30)
[2019-10-06] MEDS ORDERED: PIPERACILLIN/TAZ 2.25G PREMIX 50 ML IV NR (02:15)
[2019-10-06] MEDS ORDERED: PIPERACILLIN/TAZOBACTAM 3.375GM/50ML PREMIX IV ONE (02:15)
[2019-10-06] MEDS ORDERED: VANCOMYCIN 750 MG PREMIX 150 ML IV NR (02:30)
[2019-10-06] MEDS ORDERED: NOREPINEPHRINE 4MG/250ML PMX 250 ML IV ONE (03:00)
[2019-10-06] MEDS ORDERED: SODIUM CHLORIDE 0.9% 500 ML IV ONE (04:15)
[2019-10-06] MEDS ORDERED: VASOPRESSIN 10 UNIT in SODIUM CHLORIDE 0.9% 100 ML IV PRN (04:15)
[2019-10-06] MEDS ORDERED: EPINEPHRINE 1 MG in SODIUM CHLORIDE 0.9% 250 ML IV PRN (06:00)
[2019-10-06] MEDS: NOREPINEPHRINE 4MG/250ML PMX 250 ML IV PRN ×2 (06:31→07:30)
[2019-10-06] MEDS ORDERED: ONDANSETRON HCL 4MG/2ML INJ IV PRN (08:30)
[2019-10-06] MEDS: LACTULOSE 20G/30ML UDC PO SCH ×2 (09:00→16:40)
[2019-10-06] MEDS ORDERED: ALBUTEROL (0.083%) 2.5MG/3ML NEB HHN NR (09:00)
[2019-10-06] MEDS ORDERED: PIPERACILLIN/TAZOBACTAM 3.375 G in DEXT 5% WATER 100 ML IV SCH ×2 (09:00→13:00)
[2019-10-06] MEDS ORDERED: SODIUM BICARBONATE 8.4% 1 MEQ/ML 50ML SYR IV NR ×2 (09:00→10:30)
[2019-10-06] MEDS ORDERED: INSULIN REGULAR (HUMULIN R) 300UNITS/3ML IV NR (09:00)
[2019-10-06] MEDS ORDERED: EPINEPHRINE 1 MG in SODIUM CHLORIDE 0.9% 249 ML IV PRN (09:45)
[2019-10-06] MEDS ORDERED: CALCIUM GLUCONATE 100MG/ML 10ML VIAL IV NR (10:00)
[2019-10-06] MEDS ORDERED: LIDOCAINE HCL 1% 20ML VIAL (Pyxis) INJ ONE (10:02)
[2019-10-06 10:15] LABS: BG BASE EXCESS -14.4 mmol/L (-2.0-2.0); BG CARBOXYHEMOGLOBIN 0.3 % (0.5-1.5); BG DEOXYHEMOGLOBIN 5.4 % (0.0-5.0); BG FRACTION INSPIRED OXYGEN 40; BG METHEMOGLOBIN 0.1 % (0.0-1.5); BG OXYGEN SATURATION 94.6 % (92.0-98.5); BG OXYHEMOGLOBIN 94.2 % (94.0-97.0); BG PCO2 60.7 mmHg (35.0-45.0); BG PH 7.038 (7.350-7.450); BG PO2 100.1 mmHg (75.0-100.0); BG SAMPLE SITE RIGHT BRACHIAL; BG TOTAL HEMOGLOBIN 9.9 g/dL (12.0-18.0); BG VENT MODE NASAL CANNULA
[2019-10-06] MEDS: PHENYLEPHRINE 20 MG in DEXT 5% WATER 248 ML IV PRN ×4 (10:48→20:46)
[2019-10-06] MEDS: NOREPINEPHRINE 16 MG in DEXT 5% WATER 234 ML IV PRN ×2 (10:48→18:53)
[2019-10-06] MEDS: VASOPRESSIN 10 UNIT in SODIUM CHLORIDE 0.9% 99.5 ML IV PRN ×2 (10:50→16:05)
[2019-10-06] MEDS: FENTANYL CITRATE/PF 1,000 MCG in SODIUM CHLORIDE 0.9% 80 ML IV PRN ×2 (11:41→22:53)
[2019-10-06] MEDS: MIDAZOLAM HCL 100 MG in DEXT 5% WATER 80 ML IV PRN (11:43)
[2019-10-06] MEDS: EPINEPHRINE 2 MG in SODIUM CHLORIDE 0.9% 248 ML IV PRN ×2 (11:44→13:39)
[2019-10-06] MEDS: PANTOPRAZOLE SODIUM 40 MG/VIAL IV SCH (12:07)
[2019-10-06] MEDS: ENOXAPARIN 30MG/0.3ML SYR SUBCUT SCH (12:11)
[2019-10-06] MEDS: PIPERACILLIN/TAZOBACTAM 3.375 G in DEXT 5% WATER 100 ML IV SCH (13:41)
[2019-10-06] MEDS ORDERED: IPRATROPIUM/ALBUTEROL 0.5-3(2.5)MG/3ML NEB HHN PRN (14:45)
[2019-10-06 15:18] LABS: BG BASE EXCESS -10.4 mmol/L (-2.0-2.0); BG CARBOXYHEMOGLOBIN 0.3 % (0.5-1.5); BG DEOXYHEMOGLOBIN 2.5 % (0.0-5.0); BG FRACTION INSPIRED OXYGEN 60; BG HCO3 ACT 16.4 mmol/L (22.0-26.0); BG METHEMOGLOBIN 0.5 % (0.0-1.5); BG OXYGEN SATURATION 97.5 % (92.0-98.5); BG OXYHEMOGLOBIN 96.7 % (94.0-97.0); BG PCO2 39.6 mmHg (35.0-45.0); BG PH 7.235 (7.350-7.450); BG PO2 112.2 mmHg (75.0-100.0); BG SAMPLE SITE RIGHT BRACHIAL; BG TIDAL VOLUME(mL) 500 mL; BG TOTAL HEMOGLOBIN 10.8 g/dL (12.0-18.0); BG VENT MODE VENT - A/C; BG VENT RATE 18 set
[2019-10-06] MEDS ORDERED: SODIUM CHLORIDE 10% FOR INH 15ML VIAL NEB INH SCH (16:00)
[2019-10-06 20:46] LABS: BG BASE EXCESS -3.9 mmol/L (-2.0-2.0); BG CARBOXYHEMOGLOBIN 0.4 % (0.5-1.5); BG DEOXYHEMOGLOBIN 4.7 % (0.0-5.0); BG FRACTION INSPIRED OXYGEN 50; BG HCO3 ACT 20.9 mmol/L (22.0-26.0); BG METHEMOGLOBIN 0.1 % (0.0-1.5); BG OXYGEN SATURATION 95.3 % (92.0-98.5); BG OXYHEMOGLOBIN 94.8 % (94.0-97.0); BG PCO2 36.7 mmHg (35.0-45.0); BG PH 7.373 (7.350-7.450); BG PIP 26 cmH2O; BG PO2 78.7 mmHg (75.0-100.0); BG SAMPLE SITE RIGHT BRACHIAL; BG TIDAL VOLUME(mL) 500 mL; BG TOTAL HEMOGLOBIN 10.5 g/dL (12.0-18.0); BG VENT MODE VENT - A/C; BG VENT RATE 18 set
[2019-10-07] VITALS (94 sets, daily range): BP systolic 58–127; BP diastolic 18–93
[2019-10-07] MEDS: PIPERACILLIN/TAZOBACTAM 3.375 G in DEXT 5% WATER 100 ML IV SCH ×2 (00:18→12:24)
[2019-10-07] MEDS: PHENYLEPHRINE 20 MG in DEXT 5% WATER 248 ML IV PRN ×2 (01:06→06:26)
[2019-10-07] MEDS: MIDAZOLAM HCL 100 MG in DEXT 5% WATER 80 ML IV PRN (02:01)
[2019-10-07 05:07] LABS: BASOPHILS % 0.3 % (0.0-2.0); HEMATOCRIT. 31.3 % (36.0-48.0); HEMOGLOBIN. 10.3 g/dL (12.0-16.0); LYMPHOCYTES % 10.7 % (20.0-50.0); MEAN CORPUSCULAR HEMOGLOBIN 30.8 pg (28.0-32.0); MEAN CORPUSCULAR VOLUME 93.3 fL (81.0-99.0); MEAN PLATELET VOLUME 7.8 fl (7.4-10.4); MONOCYTES % 14.6 % (2.0-8.0); NEUTROPHILS % 73.4 % (40.0-76.0); PLATELET 241 x1000/uL (130-400); RED BLOOD CELL COUNT 3.35 mill/uL (4.2-5.4); RED CELL DISTRIBUTION WIDTH 19.7 % (11.6-14.6)
[2019-10-07 07:40] LABS: BG BASE EXCESS -2.4 mmol/L (-2.0-2.0); BG CARBOXYHEMOGLOBIN 0.2 % (0.5-1.5); BG DEOXYHEMOGLOBIN 2.3 % (0.0-5.0); BG FRACTION INSPIRED OXYGEN 50; BG HCO3 ACT 22.3 mmol/L (22.0-26.0); BG METHEMOGLOBIN 0.2 % (0.0-1.5); BG OXYGEN SATURATION 97.7 % (92.0-98.5); BG OXYHEMOGLOBIN 97.3 % (94.0-97.0); BG PCO2 38.2 mmHg (35.0-45.0); BG PH 7.385 (7.350-7.450); BG PO2 107.4 mmHg (75.0-100.0); BG SAMPLE SITE RIGHT BRACHIAL; BG TIDAL VOLUME(mL) 500 mL; BG TOTAL HEMOGLOBIN 11.6 g/dL (12.0-18.0); BG VENT MODE VENT - A/C; BG VENT RATE 18 set
[2019-10-07] MEDS: LACTULOSE 20G/30ML UDC PO SCH ×2 (08:26→16:51)
[2019-10-07] MEDS: ENOXAPARIN 30MG/0.3ML SYR SUBCUT SCH (08:26)
[2019-10-07] MEDS: PANTOPRAZOLE SODIUM 40 MG/VIAL IV SCH (08:26)
[2019-10-07] MEDS: IPRATROPIUM/ALBUTEROL 0.5-3(2.5)MG/3ML NEB HHN SCH ×3 (09:20→19:55)
[2019-10-07] MEDS: PHENYLEPHRINE 80 MG in DEXT 5% WATER 492 ML IV PRN ×2 (09:29→18:26)
[2019-10-07] MEDS: NOREPINEPHRINE 16 MG in DEXT 5% WATER 234 ML IV PRN (11:19)
[2019-10-07] MEDS ORDERED: MIDODRINE HCL 5MG TABLET PO SCH (14:00)
[2019-10-07] MEDS: FENTANYL CITRATE/PF 1,000 MCG in SODIUM CHLORIDE 0.9% 80 ML IV PRN (15:30)
[2019-10-07] MEDS ORDERED: VANCOMYCIN 1500MG in DEXTROSE 5% WATER 250ML IV NR (16:00)
[2019-10-07] MEDS: MIDODRINE HCL 5MG TABLET NG SCH (21:47)
[2019-10-08] VITALS (99 sets, daily range): BP systolic 43–141; BP diastolic 25–96
[2019-10-08] MEDS: IPRATROPIUM/ALBUTEROL 0.5-3(2.5)MG/3ML NEB HHN SCH ×4 (00:10→20:58)
[2019-10-08] MEDS: PHENYLEPHRINE 80 MG in DEXT 5% WATER 492 ML IV PRN ×3 (02:06→17:52)
[2019-10-08] MEDS: PIPERACILLIN/TAZOBACTAM 3.375 G in DEXT 5% WATER 100 ML IV SCH ×2 (02:07→17:00)
[2019-10-08] MEDS: MIDODRINE HCL 5MG TABLET NG SCH ×3 (06:00→17:01)
[2019-10-08 06:25] LABS: BASOPHILS % 0.7 % (0.0-2.0); EOSINOPHILS % 1.2 % (0.0-5.0); HEMATOCRIT. 34.5 % (36.0-48.0); HEMOGLOBIN. 11.2 g/dL (12.0-16.0); LYMPHOCYTES % 19.2 % (20.0-50.0); MEAN CORPUSCULAR HEMOGLOBIN 30.7 pg (28.0-32.0); MEAN CORPUSCULAR VOLUME 94.8 fL (81.0-99.0); MEAN PLATELET VOLUME 8.2 fl (7.4-10.4); MONOCYTES % 14.5 % (2.0-8.0); NEUTROPHILS % 64.4 % (40.0-76.0); PLATELET 253 x1000/uL (130-400); RED BLOOD CELL COUNT 3.64 mill/uL (4.2-5.4); RED CELL DISTRIBUTION WIDTH 20.4 % (11.6-14.6)
[2019-10-08 07:38] LABS: BG CARBOXYHEMOGLOBIN 0.2 % (0.5-1.5); BG DEOXYHEMOGLOBIN 2.4 % (0.0-5.0); BG METHEMOGLOBIN 0.3 % (0.0-1.5); BG OXYGEN SATURATION 97.6 % (92.0-98.5); BG OXYHEMOGLOBIN 97.1 % (94.0-97.0); BG PCO2 48.7 mmHg (35.0-45.0); BG PH 7.273 (7.350-7.450); BG PO2 104.6 mmHg (75.0-100.0); BG SAMPLE SITE RIGHT RADIAL; BG TIDAL VOLUME(mL) 550 mL; BG TOTAL HEMOGLOBIN 12.3 g/dL (12.0-18.0); BG VENT MODE VENT - A/C; BG VENT RATE 16 set
[2019-10-08] MEDS: LACTULOSE 20G/30ML UDC PO SCH ×2 (08:30→17:00)
[2019-10-08] MEDS: PANTOPRAZOLE SODIUM 40 MG/VIAL IV SCH (08:30)
[2019-10-08] MEDS: ENOXAPARIN 30MG/0.3ML SYR SUBCUT SCH (08:31)
[2019-10-08 14:59] LABS: HEPATITIS B SURFACE ANTIGEN NEGATIVE
[2019-10-08 15:28] LABS: HEPATITIS A AB IGM NEGATIVE (NEGATIVE)
[2019-10-08] MEDS: THIAMINE HCL 100MG TABLET PO SCH (17:00)
[2019-10-08] MEDS: ASCORBIC ACID 500 MG TABLET PO SCH (17:00)
[2019-10-08] MEDS: NOREPINEPHRINE 16 MG in DEXT 5% WATER 234 ML IV PRN (17:53)
[2019-10-08 18:21] LABS: BG BASE EXCESS -1.8 mmol/L (-2.0-2.0); BG CARBOXYHEMOGLOBIN 0.3 % (0.5-1.5); BG DEOXYHEMOGLOBIN 3.1 % (0.0-5.0); BG HCO3 ACT 23.6 mmol/L (22.0-26.0); BG METHEMOGLOBIN 0.1 % (0.0-1.5); BG OXYGEN SATURATION 96.9 % (92.0-98.5); BG OXYHEMOGLOBIN 96.5 % (94.0-97.0); BG PCO2 42.9 mmHg (35.0-45.0); BG PH 7.359 (7.350-7.450); BG PO2 95.6 mmHg (75.0-100.0); BG SAMPLE SITE RIGHT RADIAL; BG TIDAL VOLUME(mL) 550 mL; BG TOTAL HEMOGLOBIN 12.2 g/dL (12.0-18.0); BG VENT MODE VENT - A/C; BG VENT RATE 22 set
[2019-10-08] MEDS: MIDAZOLAM HCL 100 MG in DEXT 5% WATER 80 ML IV PRN (20:59)
[2019-10-09] VITALS (79 sets, daily range): BP systolic 100–164; BP diastolic 53–112
[2019-10-09] MEDS: IPRATROPIUM/ALBUTEROL 0.5-3(2.5)MG/3ML NEB HHN SCH ×4 (01:02→20:31)
[2019-10-09] MEDS: VASOPRESSIN 10 UNIT in SODIUM CHLORIDE 0.9% 99.5 ML IV PRN ×3 (01:20→10:19)
[2019-10-09] MEDS: PIPERACILLIN/TAZOBACTAM 3.375 G in DEXT 5% WATER 100 ML IV SCH ×2 (01:29→12:38)
[2019-10-09] MEDS: PHENYLEPHRINE 80 MG in DEXT 5% WATER 492 ML IV PRN ×3 (02:11→17:32)
[2019-10-09] MEDS: DILTIAZEM HCL 125 MG in DEXT 5% WATER 100 ML IV PRN ×3 (02:12→22:05)
[2019-10-09 05:48] LABS: BASOPHILS % 0.3 % (0.0-2.0); EOSINOPHILS % 1.1 % (0.0-5.0); HEMATOCRIT. 33.3 % (36.0-48.0); HEMOGLOBIN. 10.9 g/dL (12.0-16.0); LYMPHOCYTES % 11.5 % (20.0-50.0); MEAN CORPUSCULAR HEMOGLOBIN 30.9 pg (28.0-32.0); MEAN CORPUSCULAR VOLUME 93.9 fL (81.0-99.0); MEAN PLATELET VOLUME 8.1 fl (7.4-10.4); MONOCYTES % 11.5 % (2.0-8.0); NEUTROPHILS % 75.6 % (40.0-76.0); PLATELET 206 x1000/uL (130-400); RED BLOOD CELL COUNT 3.54 mill/uL (4.2-5.4); RED CELL DISTRIBUTION WIDTH 20.1 % (11.6-14.6)
[2019-10-09] MEDS: FENTANYL CITRATE/PF 1,000 MCG in SODIUM CHLORIDE 0.9% 80 ML IV PRN (06:37)
[2019-10-09] MEDS: LACTULOSE 20G/30ML UDC PO SCH ×2 (08:20→16:39)
[2019-10-09] MEDS: THIAMINE HCL 100MG TABLET PO SCH ×2 (08:20→16:38)
[2019-10-09] MEDS: ZINC SULFATE 220 MG ( 50 ) CAPSULE PO SCH (08:20)
[2019-10-09] MEDS: PANTOPRAZOLE SODIUM 40 MG/VIAL IV SCH (08:20)
[2019-10-09] MEDS: ASCORBIC ACID 500 MG TABLET PO SCH ×2 (08:20→16:39)
[2019-10-09] MEDS: MIDODRINE HCL 5MG TABLET NG SCH ×3 (08:21→16:39)
[2019-10-09] MEDS: ENOXAPARIN 30MG/0.3ML SYR SUBCUT SCH (08:21)
[2019-10-09 12:29] LABS: CLARITY URINE CLOUDY (CLEAR); COLOR URINE YELLOW (YELLOW); KETONES URINE NEGATIVE (NEGATIVE); LEUKOCYTE ESTERASE URINE TRACE (NEGATIVE); NITRITE URINE NEGATIVE (NEGATIVE); OCCULT BLOOD URINE 2+ (NEGATIVE); PROTEIN URINE 1+ (NEGATIVE); SPECIFIC GRAVITY URINE 1.014 (1.005-1.030); UROBILINOGEN URINE 0.2 E.U./dL (0.2-1.0)
[2019-10-10] VITALS (91 sets, daily range): BP systolic 83–118; BP diastolic 43–77
[2019-10-10] MEDS: IPRATROPIUM/ALBUTEROL 0.5-3(2.5)MG/3ML NEB HHN SCH ×2 (00:34→08:38)
[2019-10-10] MEDS: PIPERACILLIN/TAZOBACTAM 3.375 G in DEXT 5% WATER 100 ML IV SCH ×2 (01:00→14:00)
[2019-10-10] MEDS: EPINEPHRINE 2 MG in SODIUM CHLORIDE 0.9% 248 ML IV PRN (03:36)
[2019-10-10 04:56] LABS: BASOPHILS % 0.6 % (0.0-2.0); EOSINOPHILS % 1.4 % (0.0-5.0); HEMATOCRIT. 31.3 % (36.0-48.0); HEMOGLOBIN. 10.3 g/dL (12.0-16.0); LYMPHOCYTES % 11.7 % (20.0-50.0); MEAN CORPUSCULAR HEMOGLOBIN 30.7 pg (28.0-32.0); MEAN CORPUSCULAR VOLUME 93.7 fL (81.0-99.0); MONOCYTES % 12.9 % (2.0-8.0); NEUTROPHILS % 73.4 % (40.0-76.0); PLATELET 181 x1000/uL (130-400); RED BLOOD CELL COUNT 3.34 mill/uL (4.2-5.4); RED CELL DISTRIBUTION WIDTH 20.5 % (11.6-14.6)
[2019-10-10 05:32] LABS: PHOSPHORUS 4.9 mg/dL (2.5-4.9)
[2019-10-10] MEDS: THIAMINE HCL 100MG TABLET PO SCH ×2 (09:24→17:04)
[2019-10-10] MEDS: MIDODRINE HCL 5MG TABLET NG SCH ×3 (09:24→17:05)
[2019-10-10] MEDS: ZINC SULFATE 220 MG ( 50 ) CAPSULE PO SCH (09:24)
[2019-10-10] MEDS: ASCORBIC ACID 500 MG TABLET PO SCH ×2 (09:24→17:05)
[2019-10-10] MEDS: LACTULOSE 20G/30ML UDC PO SCH (09:24)
[2019-10-10] MEDS: ENOXAPARIN 30MG/0.3ML SYR SUBCUT SCH (09:25)
[2019-10-10] MEDS: PANTOPRAZOLE SODIUM 40 MG/VIAL IV SCH (09:25)
[2019-10-10 10:08] LABS: BG BASE EXCESS -3.9 mmol/L (-2.0-2.0); BG CARBOXYHEMOGLOBIN 0.4 % (0.5-1.5); BG DEOXYHEMOGLOBIN 2.8 % (0.0-5.0); BG FRACTION INSPIRED OXYGEN 40; BG HCO3 ACT 19.9 mmol/L (22.0-26.0); BG METHEMOGLOBIN 0.1 % (0.0-1.5); BG OXYGEN SATURATION 97.2 % (92.0-98.5); BG OXYHEMOGLOBIN 96.7 % (94.0-97.0); BG PCO2 31.7 mmHg (35.0-45.0); BG PH 7.415 (7.350-7.450); BG PO2 94.9 mmHg (75.0-100.0); BG SAMPLE SITE RIGHT RADIAL; BG TIDAL VOLUME(mL) 550 mL; BG TOTAL HEMOGLOBIN 10.5 g/dL (12.0-18.0); BG VENT MODE VENT - A/C; BG VENT RATE 22 set
[2019-10-10] MEDS ORDERED: ENOXAPARIN 60MG/0.6ML SYR SUBCUT NR (11:00)
[2019-10-10] MEDS: PHENYLEPHRINE 80 MG in DEXT 5% WATER 492 ML IV PRN (12:30)
[2019-10-10] MEDS ORDERED: VANCOMYCIN 1 G PREMIX 200 ML IV NR (14:00)
[2019-10-10] MEDS: METHYLPREDNISOLONE SOD SUCC 40 MG/ML VIAL IV SCH ×2 (14:17→17:04)
[2019-10-10 15:46] LABS: D-DIMER 7.45 mg/L FEU (<0.50); INR 1.1; PROTHROMBIN TIME 11.4 sec (9.6-11.0)
[2019-10-11] VITALS (83 sets, daily range): BP systolic 74–123; BP diastolic 43–100
[2019-10-11] MEDS: PHENYLEPHRINE 80 MG in DEXT 5% WATER 492 ML IV PRN (01:49)
[2019-10-11] MEDS: PIPERACILLIN/TAZOBACTAM 3.375 G in DEXT 5% WATER 100 ML IV SCH ×2 (01:49→14:18)
[2019-10-11 05:54] LABS: BASOPHILS % 0.1 % (0.0-2.0); HEMATOCRIT. 31.7 % (36.0-48.0); HEMOGLOBIN. 10.4 g/dL (12.0-16.0); LYMPHOCYTES % 8.4 % (20.0-50.0); MEAN CORPUSCULAR HEMOGLOBIN 30.7 pg (28.0-32.0); MEAN CORPUSCULAR VOLUME 93.5 fL (81.0-99.0); MEAN PLATELET VOLUME 8.4 fl (7.4-10.4); MONOCYTES % 2.1 % (2.0-8.0); NEUTROPHILS % 89.4 % (40.0-76.0); PLATELET 189 x1000/uL (130-400); RED BLOOD CELL COUNT 3.39 mill/uL (4.2-5.4); RED CELL DISTRIBUTION WIDTH 20.1 % (11.6-14.6)
[2019-10-11 06:27] LABS: PROTHROMBIN TIME 10.5 sec (9.6-11.0)
[2019-10-11 07:42] LABS: BG BASE EXCESS -3.2 mmol/L (-2.0-2.0); BG CARBOXYHEMOGLOBIN 0.3 % (0.5-1.5); BG DEOXYHEMOGLOBIN 1.5 % (0.0-5.0); BG FRACTION INSPIRED OXYGEN 40; BG HCO3 ACT 20.8 mmol/L (22.0-26.0); BG METHEMOGLOBIN 0.1 % (0.0-1.5); BG OXYGEN SATURATION 98.5 % (92.0-98.5); BG OXYHEMOGLOBIN 98.1 % (94.0-97.0); BG PCO2 33.3 mmHg (35.0-45.0); BG PH 7.413 (7.350-7.450); BG PO2 120.6 mmHg (75.0-100.0); BG SAMPLE SITE RIGHT RADIAL; BG TIDAL VOLUME(mL) 550 mL; BG TOTAL HEMOGLOBIN 10.6 g/dL (12.0-18.0); BG VENT MODE VENT - A/C; BG VENT RATE 22 set
[2019-10-11] MEDS: MIDODRINE HCL 5MG TABLET NG SCH ×3 (08:19→16:45)
[2019-10-11] MEDS: METHYLPREDNISOLONE SOD SUCC 40 MG/ML VIAL IV SCH ×2 (08:19→16:45)
[2019-10-11] MEDS: ASCORBIC ACID 500 MG TABLET PO SCH ×2 (08:19→16:45)
[2019-10-11] MEDS: THIAMINE HCL 100MG TABLET PO SCH ×2 (08:19→16:45)
[2019-10-11] MEDS: ZINC SULFATE 220 MG ( 50 ) CAPSULE PO SCH (08:19)
[2019-10-11] MEDS: PANTOPRAZOLE SODIUM 40 MG/VIAL IV SCH (08:19)
[2019-10-11] MEDS: ENOXAPARIN 80MG/0.8ML SYR SUBCUT SCH (08:20)
[2019-10-12] VITALS (78 sets, daily range): BP systolic 83–125; BP diastolic 30–78
[2019-10-12] MEDS: DILTIAZEM HCL 125 MG in DEXT 5% WATER 100 ML IV PRN (04:30)
[2019-10-12 05:46] LABS: HEMATOCRIT. 25.5 % (36.0-48.0); HEMOGLOBIN. 8.5 g/dL (12.0-16.0); MEAN CORPUSCULAR HEMOGLOBIN 30.8 pg (28.0-32.0); MEAN CORPUSCULAR VOLUME 92.9 fL (81.0-99.0); MEAN PLATELET VOLUME 8.7 fl (7.4-10.4); PLATELET 175 x1000/uL (130-400); RED BLOOD CELL COUNT 2.75 mill/uL (4.2-5.4); RED CELL DISTRIBUTION WIDTH 19.7 % (11.6-14.6)
[2019-10-12] MEDS: METHYLPREDNISOLONE SOD SUCC 40 MG/ML VIAL IV SCH ×2 (08:04→17:11)
[2019-10-12] MEDS: ASCORBIC ACID 500 MG TABLET PO SCH ×2 (08:04→17:12)
[2019-10-12] MEDS: THIAMINE HCL 100MG TABLET PO SCH ×2 (08:04→17:12)
[2019-10-12] MEDS: ZINC SULFATE 220 MG ( 50 ) CAPSULE PO SCH (08:04)
[2019-10-12] MEDS: PANTOPRAZOLE SODIUM 40 MG/VIAL IV SCH (08:04)
[2019-10-12] MEDS: ENOXAPARIN 80MG/0.8ML SYR SUBCUT SCH (08:05)
[2019-10-12] MEDS: MIDODRINE HCL 5MG TABLET NG SCH ×3 (08:05→17:12)
[2019-10-12 09:41] LABS: BG BASE EXCESS -4.1 mmol/L (-2.0-2.0); BG CARBOXYHEMOGLOBIN 0.5 % (0.5-1.5); BG DEOXYHEMOGLOBIN 1.4 % (0.0-5.0); BG FRACTION INSPIRED OXYGEN 40; BG HCO3 ACT 20.5 mmol/L (22.0-26.0); BG METHEMOGLOBIN 0.3 % (0.0-1.5); BG OXYGEN SATURATION 98.6 % (92.0-98.5); BG OXYHEMOGLOBIN 97.8 % (94.0-97.0); BG PCO2 35.3 mmHg (35.0-45.0); BG PH 7.382 (7.350-7.450); BG PO2 124.2 mmHg (75.0-100.0); BG SAMPLE SITE LEFT RADIAL; BG TIDAL VOLUME(mL) 550 mL; BG TOTAL HEMOGLOBIN 8.3 g/dL (12.0-18.0); BG VENT MODE VENT - A/C; BG VENT RATE 18 set
[2019-10-12 09:49] LABS: NUCLEATED RED BLOOD CELLS 1 /100 WBC; PLATELET ESTIMATE NORMAL
[2019-10-12 13:06] LABS: ANTI-NUCLEAR ANTIBODIES DIRECT Positive (Negative)
[2019-10-12] MEDS: PHENYLEPHRINE 80 MG in DEXT 5% WATER 492 ML IV PRN (20:56)
[2019-10-12] MEDS ORDERED: VANCOMYCIN 1 G PREMIX 200 ML IV NR (21:00)
[2019-10-13] VITALS (89 sets, daily range): BP systolic 94–129; BP diastolic 38–94
[2019-10-13] MEDS: DILTIAZEM HCL 125 MG in DEXT 5% WATER 100 ML IV PRN ×2 (01:08→11:28)
[2019-10-13] MEDS: PHENYLEPHRINE 80 MG in DEXT 5% WATER 492 ML IV PRN ×3 (05:12→22:32)
[2019-10-13 05:24] LABS: HEMATOCRIT. 22.4 % (36.0-48.0); HEMOGLOBIN. 7.6 g/dL (12.0-16.0); MEAN CORPUSCULAR HEMOGLOBIN 31.1 pg (28.0-32.0); MEAN CORPUSCULAR VOLUME 92.2 fL (81.0-99.0); MEAN PLATELET VOLUME 8.9 fl (7.4-10.4); PLATELET 195 x1000/uL (130-400); RED BLOOD CELL COUNT 2.43 mill/uL (4.2-5.4); RED CELL DISTRIBUTION WIDTH 19.3 % (11.6-14.6)
[2019-10-13 10:05] LABS: PLATELET ESTIMATE NORMAL
[2019-10-13] MEDS: METHYLPREDNISOLONE SOD SUCC 40 MG/ML VIAL IV SCH ×2 (10:38→16:49)
[2019-10-13] MEDS: ASCORBIC ACID 500 MG TABLET PO SCH ×2 (10:38→16:51)
[2019-10-13] MEDS: PANTOPRAZOLE SODIUM 40 MG/VIAL IV SCH (10:38)
[2019-10-13] MEDS: MIDODRINE HCL 5MG TABLET NG SCH ×3 (10:39→16:50)
[2019-10-13] MEDS: THIAMINE HCL 100MG TABLET PO SCH ×2 (10:39→16:50)
[2019-10-13] MEDS: ZINC SULFATE 220 MG ( 50 ) CAPSULE PO SCH (10:39)
[2019-10-13 12:21] LABS: BG CARBOXYHEMOGLOBIN 0.5 % (0.5-1.5); BG DEOXYHEMOGLOBIN 5.2 % (0.0-5.0); BG FRACTION INSPIRED OXYGEN 30; BG HCO3 ACT 16.5 mmol/L (22.0-26.0); BG METHEMOGLOBIN 0.4 % (0.0-1.5); BG OXYGEN SATURATION 94.8 % (92.0-98.5); BG OXYHEMOGLOBIN 93.9 % (94.0-97.0); BG PCO2 29.2 mmHg (35.0-45.0); BG SAMPLE SITE RIGHT RADIAL; BG TIDAL VOLUME(mL) 550 mL; BG TOTAL HEMOGLOBIN 7.1 g/dL (12.0-18.0); BG VENT MODE VENT - A/C; BG VENT RATE 14 set
[2019-10-14] VITALS (97 sets, daily range): BP systolic 99–143; BP diastolic 41–115
[2019-10-14 05:38] LABS: RED BLOOD CELL COUNT 2.15 mill/uL (4.2-5.4)
[2019-10-14 05:39] LABS: MEAN CORPUSCULAR HEMOGLOBIN 31.2 pg (28.0-32.0); MEAN CORPUSCULAR VOLUME 92.3 fL (81.0-99.0); MEAN PLATELET VOLUME 9.2 fl (7.4-10.4); PLATELET 170 x1000/uL (130-400); RED CELL DISTRIBUTION WIDTH 19.5 % (11.6-14.6)
[2019-10-14 05:51] LABS: HEMATOCRIT. 19.8 % (36.0-48.0); HEMOGLOBIN. 6.7 g/dL (12.0-16.0)
[2019-10-14] MEDS: PHENYLEPHRINE 80 MG in DEXT 5% WATER 492 ML IV PRN (06:57)
[2019-10-14] MEDS: THIAMINE HCL 100MG TABLET PO SCH ×2 (08:00→17:08)
[2019-10-14] MEDS: MIDODRINE HCL 5MG TABLET NG SCH ×3 (08:00→17:08)
[2019-10-14] MEDS: METHYLPREDNISOLONE SOD SUCC 40 MG/ML VIAL IV SCH ×2 (08:00→17:08)
[2019-10-14] MEDS: ASCORBIC ACID 500 MG TABLET PO SCH ×2 (08:00→17:08)
[2019-10-14] MEDS: PANTOPRAZOLE SODIUM 40 MG/VIAL IV SCH (08:00)
[2019-10-14] MEDS: ZINC SULFATE 220 MG ( 50 ) CAPSULE PO SCH (08:00)
[2019-10-14 09:10] LABS: PLATELET ESTIMATE NORMAL
[2019-10-14 09:40] LABS: BG BASE EXCESS -2.4 mmol/L (-2.0-2.0); BG CARBOXYHEMOGLOBIN 1.6 % (0.5-1.5); BG DEOXYHEMOGLOBIN 3.7 % (0.0-5.0); BG FRACTION INSPIRED OXYGEN 30; BG HCO3 ACT 22.6 mmol/L (22.0-26.0); BG METHEMOGLOBIN 0.2 % (0.0-1.5); BG OXYGEN SATURATION 96.2 % (92.0-98.5); BG OXYHEMOGLOBIN 94.5 % (94.0-97.0); BG PCO2 39.2 mmHg (35.0-45.0); BG PH 7.378 (7.350-7.450); BG PO2 83.6 mmHg (75.0-100.0); BG SAMPLE SITE RIGHT RADIAL; BG TIDAL VOLUME(mL) 550 mL; BG TOTAL HEMOGLOBIN 6.4 g/dL (12.0-18.0); BG VENT MODE VENT - A/C; BG VENT RATE 14 set
[2019-10-14 13:06] LABS: ANTI-MYELOPEROXIDASE AB < 9.0 U/mL (0.0-9.0); ANTI-PROTEINASE 3 ABS < 3.5 U/mL (0.0-3.5); ATYPICAL P-ANCA <1:20 titer (Neg:<1:20); PERINUCLEAR P-ANCA <1:20 titer (Neg:<1:20)
[2019-10-14] MEDS: DILTIAZEM HCL 30MG TABLET NG SCH ×2 (14:45→21:08)
[2019-10-14 20:18] LABS: HEMATOCRIT. 23.4 % (36.0-48.0); HEMOGLOBIN. 7.7 g/dL (12.0-16.0); MEAN CORPUSCULAR HEMOGLOBIN 30.2 pg (28.0-32.0); MEAN CORPUSCULAR VOLUME 91.4 fL (81.0-99.0); MEAN PLATELET VOLUME 7.9 fl (7.4-10.4); PLATELET 158 x1000/uL (130-400); RED BLOOD CELL COUNT 2.56 mill/uL (4.2-5.4); RED CELL DISTRIBUTION WIDTH 17.3 % (11.6-14.6)
[2019-10-14 21:02] LABS: NUCLEATED RED BLOOD CELLS 1 /100 WBC; PLATELET ESTIMATE NORMAL
[2019-10-15] VITALS (94 sets, daily range): BP systolic 94–166; BP diastolic 48–127
[2019-10-15] MEDS: DILTIAZEM HCL 125 MG in DEXT 5% WATER 100 ML IV PRN ×2 (03:39→10:50)
[2019-10-15] MEDS: DILTIAZEM HCL 30MG TABLET NG SCH ×3 (05:41→22:00)
[2019-10-15] MEDS ORDERED: DIGOXIN 500MCG/2ML AMP IV SCH (05:45)
[2019-10-15 06:21] LABS: HEMOGLOBIN. 7.8 g/dL (12.0-16.0); MEAN CORPUSCULAR HEMOGLOBIN 30.5 pg (28.0-32.0); MEAN CORPUSCULAR VOLUME 90.7 fL (81.0-99.0); MEAN PLATELET VOLUME 8.4 fl (7.4-10.4); PLATELET 195 x1000/uL (130-400); RED BLOOD CELL COUNT 2.54 mill/uL (4.2-5.4); RED CELL DISTRIBUTION WIDTH 17.6 % (11.6-14.6)
[2019-10-15] MEDS: PANTOPRAZOLE SODIUM 40 MG/VIAL IV SCH (08:57)
[2019-10-15] MEDS: ZINC SULFATE 220 MG ( 50 ) CAPSULE PO SCH (08:57)
[2019-10-15] MEDS: METHYLPREDNISOLONE SOD SUCC 40 MG/ML VIAL IV SCH ×2 (08:57→17:10)
[2019-10-15] MEDS: MIDODRINE HCL 5MG TABLET NG SCH ×3 (08:59→17:12)
[2019-10-15] MEDS: ESMOLOL 2500MG PREMIX 250 ML IV PRN ×2 (09:07→19:14)
[2019-10-15 09:31] LABS: BG BASE EXCESS -3.5 mmol/L (-2.0-2.0); BG CARBOXYHEMOGLOBIN 0.2 % (0.5-1.5); BG DEOXYHEMOGLOBIN 10.2 % (0.0-5.0); BG FRACTION INSPIRED OXYGEN 30; BG HCO3 ACT 22.5 mmol/L (22.0-26.0); BG METHEMOGLOBIN 0.3 % (0.0-1.5); BG OXYGEN SATURATION 89.7 % (92.0-98.5); BG OXYHEMOGLOBIN 89.3 % (94.0-97.0); BG PCO2 45.2 mmHg (35.0-45.0); BG PH 7.315 (7.350-7.450); BG PO2 61.1 mmHg (75.0-100.0); BG SAMPLE SITE RIGHT RADIAL; BG TIDAL VOLUME(mL) 550 mL; BG TOTAL HEMOGLOBIN 8.5 g/dL (12.0-18.0); BG VENT MODE VENT - A/C; BG VENT RATE 14 set
[2019-10-15 10:46] LABS: PLATELET ESTIMATE NORMAL
[2019-10-16] VITALS (96 sets, daily range): BP systolic 103–146; BP diastolic 47–102
[2019-10-16] MEDS: DILTIAZEM HCL 125 MG in DEXT 5% WATER 100 ML IV PRN ×3 (01:38→18:22)
[2019-10-16 04:54] LABS: HEMATOCRIT. 22.1 % (36.0-48.0); HEMOGLOBIN. 7.6 g/dL (12.0-16.0); MEAN CORPUSCULAR HEMOGLOBIN 31.1 pg (28.0-32.0); MEAN CORPUSCULAR VOLUME 91.2 fL (81.0-99.0); MEAN PLATELET VOLUME 7.7 fl (7.4-10.4); PLATELET 193 x1000/uL (130-400); RED BLOOD CELL COUNT 2.43 mill/uL (4.2-5.4); RED CELL DISTRIBUTION WIDTH 17.6 % (11.6-14.6)
[2019-10-16] MEDS: DILTIAZEM HCL 30MG TABLET NG SCH ×3 (06:14→22:00)
[2019-10-16] MEDS: METHYLPREDNISOLONE SOD SUCC 40 MG/ML VIAL IV SCH ×2 (08:23→17:25)
[2019-10-16] MEDS: ZINC SULFATE 220 MG ( 50 ) CAPSULE PO SCH (08:24)
[2019-10-16] MEDS: MIDODRINE HCL 5MG TABLET NG SCH ×3 (08:24→17:00)
[2019-10-16] MEDS: ESMOLOL 2500MG PREMIX 250 ML IV PRN ×2 (08:25→18:23)
[2019-10-16] MEDS: PANTOPRAZOLE SODIUM 40 MG/VIAL IV SCH (08:43)
[2019-10-16] MEDS ORDERED: MAGNESIUM 2 G PREMIX 50 ML IV SCH (11:00)
[2019-10-16 14:36] LABS: BG BASE EXCESS 0.6 mmol/L (-2.0-2.0); BG CARBOXYHEMOGLOBIN 0.8 % (0.5-1.5); BG FRACTION INSPIRED OXYGEN 30; BG HCO3 ACT 27.2 mmol/L (22.0-26.0); BG METHEMOGLOBIN 0.1 % (0.0-1.5); BG OXYGEN SATURATION 63.7 % (92.0-98.5); BG OXYHEMOGLOBIN 63.1 % (94.0-97.0); BG PCO2 55.8 mmHg (35.0-45.0); BG PH 7.306 (7.350-7.450); BG PO2 36.4 mmHg (75.0-100.0); BG SAMPLE SITE RIGHT BRACHIAL; BG TIDAL VOLUME(mL) 550 mL; BG TOTAL HEMOGLOBIN 7.8 g/dL (12.0-18.0); BG VENT MODE VAPOTHERM; BG VENT RATE 14 set
[2019-10-16 14:37] LABS: PLATELET ESTIMATE NORMAL
[2019-10-16 15:12] LABS: BG BASE EXCESS -2.6 mmol/L (-2.0-2.0); BG CARBOXYHEMOGLOBIN 0.7 % (0.5-1.5); BG DEOXYHEMOGLOBIN 6.7 % (0.0-5.0); BG FRACTION INSPIRED OXYGEN 30; BG HCO3 ACT 22.8 mmol/L (22.0-26.0); BG METHEMOGLOBIN 0.2 % (0.0-1.5); BG OXYGEN SATURATION 93.2 % (92.0-98.5); BG OXYHEMOGLOBIN 92.4 % (94.0-97.0); BG PCO2 42.4 mmHg (35.0-45.0); BG PH 7.349 (7.350-7.450); BG PO2 72.1 mmHg (75.0-100.0); BG SAMPLE SITE RIGHT BRACHIAL; BG TIDAL VOLUME(mL) 550 mL; BG TOTAL HEMOGLOBIN 7.8 g/dL (12.0-18.0); BG VENT MODE VENT - A/C; BG VENT RATE 14 set
[2019-10-17] VITALS (93 sets, daily range): BP systolic 80–139; BP diastolic 42–89
[2019-10-17] MEDS: DILTIAZEM HCL 125 MG in DEXT 5% WATER 100 ML IV PRN ×2 (03:23→23:25)
[2019-10-17 04:35] LABS: HEMATOCRIT. 22.8 % (36.0-48.0); HEMOGLOBIN. 7.5 g/dL (12.0-16.0); MEAN CORPUSCULAR HEMOGLOBIN 30.6 pg (28.0-32.0); MEAN CORPUSCULAR VOLUME 92.7 fL (81.0-99.0); MEAN PLATELET VOLUME 7.8 fl (7.4-10.4); PLATELET 188 x1000/uL (130-400); RED BLOOD CELL COUNT 2.46 mill/uL (4.2-5.4); RED CELL DISTRIBUTION WIDTH 17.5 % (11.6-14.6)
[2019-10-17] MEDS: ESMOLOL 2500MG PREMIX 250 ML IV PRN (05:24)
[2019-10-17] MEDS: DILTIAZEM HCL 30MG TABLET NG SCH ×3 (05:25→22:00)
[2019-10-17] MEDS: ZINC SULFATE 220 MG ( 50 ) CAPSULE PO SCH (08:09)
[2019-10-17] MEDS: METHYLPREDNISOLONE SOD SUCC 40 MG/ML VIAL IV SCH (08:09)
[2019-10-17] MEDS: PANTOPRAZOLE SODIUM 40 MG/VIAL IV SCH (08:09)
[2019-10-17] MEDS: MIDODRINE HCL 5MG TABLET NG SCH ×3 (08:10→17:15)
[2019-10-17 09:10] LABS: BG BASE EXCESS -2.3 mmol/L (-2.0-2.0); BG CARBOXYHEMOGLOBIN 1.8 % (0.5-1.5); BG DEOXYHEMOGLOBIN 7.8 % (0.0-5.0); BG FRACTION INSPIRED OXYGEN 30; BG HCO3 ACT 23.6 mmol/L (22.0-26.0); BG METHEMOGLOBIN 0.6 % (0.0-1.5); BG OXYHEMOGLOBIN 89.8 % (94.0-97.0); BG PCO2 46.2 mmHg (35.0-45.0); BG PH 7.326 (7.350-7.450); BG PO2 66.4 mmHg (75.0-100.0); BG SAMPLE SITE RIGHT RADIAL; BG TIDAL VOLUME(mL) 550 mL; BG TOTAL HEMOGLOBIN 7.4 g/dL (12.0-18.0); BG VENT MODE VENT - A/C; BG VENT RATE 14 set
[2019-10-17] MEDS ORDERED: POTASSIUM CHLORIDE 20MEQ/PACKET PO NR (09:30)
[2019-10-17 11:53] LABS: PLATELET ESTIMATE NORMAL
[2019-10-18] VITALS (90 sets, daily range): BP systolic 92–135; BP diastolic 42–87
[2019-10-18 05:36] LABS: HEMATOCRIT. 21.1 % (36.0-48.0); HEMOGLOBIN. 7.1 g/dL (12.0-16.0); MEAN CORPUSCULAR HEMOGLOBIN 30.9 pg (28.0-32.0); MEAN CORPUSCULAR VOLUME 91.8 fL (81.0-99.0); MEAN PLATELET VOLUME 7.9 fl (7.4-10.4); PLATELET 198 x1000/uL (130-400); RED BLOOD CELL COUNT 2.29 mill/uL (4.2-5.4); RED CELL DISTRIBUTION WIDTH 17.7 % (11.6-14.6)
[2019-10-18] MEDS: DILTIAZEM HCL 30MG TABLET NG SCH (06:00)
[2019-10-18 08:01] LABS: BG BASE EXCESS -2.1 mmol/L (-2.0-2.0); BG CARBOXYHEMOGLOBIN 1.2 % (0.5-1.5); BG DEOXYHEMOGLOBIN 2.4 % (0.0-5.0); BG FRACTION INSPIRED OXYGEN 40; BG HCO3 ACT 23.7 mmol/L (22.0-26.0); BG METHEMOGLOBIN 0.2 % (0.0-1.5); BG OXYGEN SATURATION 97.6 % (92.0-98.5); BG OXYHEMOGLOBIN 96.2 % (94.0-97.0); BG PCO2 45.9 mmHg (35.0-45.0); BG PH 7.331 (7.350-7.450); BG PRESSURE SUPPORT 12; BG SAMPLE SITE RIGHT RADIAL; BG TIDAL VOLUME(mL) 550 mL; BG TOTAL HEMOGLOBIN 7.3 g/dL (12.0-18.0); BG VENT MODE VENT - SIMV; BG VENT RATE 8 set
[2019-10-18] MEDS: MIDODRINE HCL 5MG TABLET NG SCH ×3 (08:11→17:26)
[2019-10-18] MEDS: PANTOPRAZOLE SODIUM 40 MG/VIAL IV SCH (08:11)
[2019-10-18] MEDS: ZINC SULFATE 220 MG ( 50 ) CAPSULE PO SCH (08:11)
[2019-10-18] MEDS: METHYLPREDNISOLONE SOD SUCC 40 MG/ML VIAL IV SCH (08:11)
[2019-10-18 12:12] LABS: BG BASE EXCESS -3.2 mmol/L (-2.0-2.0); BG CARBOXYHEMOGLOBIN 0.7 % (0.5-1.5); BG DEOXYHEMOGLOBIN 2.2 % (0.0-5.0); BG FRACTION INSPIRED OXYGEN 40; BG HCO3 ACT 22.8 mmol/L (22.0-26.0); BG METHEMOGLOBIN 0.3 % (0.0-1.5); BG OXYGEN SATURATION 97.8 % (92.0-98.5); BG OXYHEMOGLOBIN 96.8 % (94.0-97.0); BG PCO2 45.8 mmHg (35.0-45.0); BG PH 7.315 (7.350-7.450); BG PO2 115.2 mmHg (75.0-100.0); BG PRESSURE SUPPORT 8; BG SAMPLE SITE RIGHT RADIAL; BG TOTAL HEMOGLOBIN 7.5 g/dL (12.0-18.0); BG VENT MODE VENT - CPAP
[2019-10-18] MEDS: DILTIAZEM HCL 60MG TABLET NG SCH ×2 (13:52→22:00)
[2019-10-18 14:17] LABS: PLATELET ESTIMATE NORMAL
[2019-10-19] VITALS (92 sets, daily range): BP systolic 104–158; BP diastolic 45–108
[2019-10-19] MEDS: DILTIAZEM HCL 125 MG in DEXT 5% WATER 100 ML IV PRN (04:00)
[2019-10-19 05:25] LABS: HEMATOCRIT. 22.6 % (36.0-48.0); HEMOGLOBIN. 7.7 g/dL (12.0-16.0); MEAN CORPUSCULAR HEMOGLOBIN 30.8 pg (28.0-32.0); MEAN CORPUSCULAR VOLUME 90.9 fL (81.0-99.0); MEAN PLATELET VOLUME 7.9 fl (7.4-10.4); PLATELET 220 x1000/uL (130-400); RED BLOOD CELL COUNT 2.48 mill/uL (4.2-5.4); RED CELL DISTRIBUTION WIDTH 17.8 % (11.6-14.6)
[2019-10-19] MEDS: DILTIAZEM HCL 60MG TABLET NG SCH (06:28)
[2019-10-19] MEDS: MIDODRINE HCL 5MG TABLET NG SCH ×3 (09:00→17:00)
[2019-10-19] MEDS: METHYLPREDNISOLONE SOD SUCC 40 MG/ML VIAL IV SCH (09:27)
[2019-10-19] MEDS: PANTOPRAZOLE SODIUM 40 MG/VIAL IV SCH (09:27)
[2019-10-19] MEDS: ZINC SULFATE 220 MG ( 50 ) CAPSULE PO SCH (09:28)
[2019-10-19 10:09] LABS: PLATELET ESTIMATE NORMAL
[2019-10-19 13:06] LABS: QFT MITOGEN VALUE 0.05 IU/mL (.); QFT TB GOLD PLUS Indeterminate (Negative); QFT TB1 AG VALUE 0.01 IU/mL (.)
[2019-10-19] MEDS: DILTIAZEM HCL 90MG TABLET NG SCH (21:41)
[2019-10-20] VITALS (33 sets, daily range): BP systolic 102–182; BP diastolic 45–119
[2019-10-20] MEDS: DILTIAZEM HCL 125 MG in DEXT 5% WATER 100 ML IV PRN (01:04)
[2019-10-20 07:47] LABS: HEMATOCRIT. 21.4 % (36.0-48.0); HEMOGLOBIN. 7.2 g/dL (12.0-16.0); MEAN CORPUSCULAR HEMOGLOBIN 31.2 pg (28.0-32.0); MEAN CORPUSCULAR VOLUME 92.6 fL (81.0-99.0); MEAN PLATELET VOLUME 8.8 fl (7.4-10.4); PLATELET 151 x1000/uL (130-400); RED BLOOD CELL COUNT 2.31 mill/uL (4.2-5.4); RED CELL DISTRIBUTION WIDTH 18.3 % (11.6-14.6)
[2019-10-20] MEDS: PREDNISONE 20MG TABLET PO SCH (08:30)
[2019-10-20] MEDS: ZINC SULFATE 220 MG ( 50 ) CAPSULE PO SCH (08:30)
[2019-10-20] MEDS: PANTOPRAZOLE SODIUM 40 MG/VIAL IV SCH (08:30)
[2019-10-20] MEDS: MIDODRINE HCL 5MG TABLET NG SCH ×3 (08:31→17:00)
[2019-10-20] MEDS: DILTIAZEM HCL 90MG TABLET NG SCH ×2 (13:06→22:01)
[2019-10-20 13:38] LABS: PLATELET ESTIMATE NORMAL
[2019-10-21] VITALS (36 sets, daily range): BP systolic 81–153; BP diastolic 41–99
[2019-10-21 05:07] LABS: MEAN CORPUSCULAR HEMOGLOBIN 30.7 pg (28.0-32.0); MEAN PLATELET VOLUME 8.4 fl (7.4-10.4); PLATELET 154 x1000/uL (130-400); RED BLOOD CELL COUNT 2.17 mill/uL (4.2-5.4); RED CELL DISTRIBUTION WIDTH 18.6 % (11.6-14.6)
[2019-10-21 07:04] LABS: HEMOGLOBIN. 6.7 g/dL (12.0-16.0)
[2019-10-21 07:05] LABS: HEMATOCRIT. 20.2 % (36.0-48.0)
[2019-10-21 08:09] LABS: PLATELET ESTIMATE NORMAL
[2019-10-21] MEDS: MIDODRINE HCL 5MG TABLET NG SCH ×3 (08:54→17:15)
[2019-10-21] MEDS: PREDNISONE 20MG TABLET PO SCH (08:55)
[2019-10-21] MEDS: ZINC SULFATE 220 MG ( 50 ) CAPSULE PO SCH (08:55)
[2019-10-21] MEDS: PANTOPRAZOLE SODIUM 40 MG/VIAL IV SCH (08:55)
[2019-10-21 11:51] LABS: BG BASE EXCESS 1.7 mmol/L (-2.0-2.0); BG CARBOXYHEMOGLOBIN 0.8 % (0.5-1.5); BG FRACTION INSPIRED OXYGEN 48; BG HCO3 ACT 28.1 mmol/L (22.0-26.0); BG METHEMOGLOBIN 0.3 % (0.0-1.5); BG OXYGEN SATURATION 88.9 % (92.0-98.5); BG OXYHEMOGLOBIN 87.9 % (94.0-97.0); BG PCO2 55.3 mmHg (35.0-45.0); BG PH 7.324 (7.350-7.450); BG SAMPLE SITE RIGHT BRACHIAL; BG TOTAL HEMOGLOBIN 7.6 g/dL (12.0-18.0); BG VENT MODE NASAL CANNULA
[2019-10-21] MEDS: DILTIAZEM HCL 90MG TABLET NG SCH ×2 (14:00→22:00)
[2019-10-21 18:13] LABS: HEMATOCRIT. 27.9 % (36.0-48.0); HEMOGLOBIN. 9.4 g/dL (12.0-16.0); MEAN CORPUSCULAR HEMOGLOBIN 31.2 pg (28.0-32.0); MEAN CORPUSCULAR VOLUME 93.1 fL (81.0-99.0); PLATELET 154 x1000/uL (130-400); RED CELL DISTRIBUTION WIDTH 17.2 % (11.6-14.6)
[2019-10-21 19:45] LABS: PLATELET ESTIMATE NORMAL
[2019-10-22] VITALS: BP 114/71
[2019-10-22 04:00] VITALS: BP 139/91
[2019-10-22] MEDS: DILTIAZEM HCL 90MG TABLET NG SCH ×3 (06:00→22:00)
[2019-10-22 07:46] LABS: HEMATOCRIT. 25.7 % (36.0-48.0); HEMOGLOBIN. 8.8 g/dL (12.0-16.0); MEAN CORPUSCULAR HEMOGLOBIN 31.2 pg (28.0-32.0); MEAN CORPUSCULAR VOLUME 91.2 fL (81.0-99.0); MEAN PLATELET VOLUME 8.2 fl (7.4-10.4); PLATELET 66 x1000/uL (130-400); RED BLOOD CELL COUNT 2.82 mill/uL (4.2-5.4)
[2019-10-22 08:00] VITALS: BP 150/82
[2019-10-22] MEDS: ZINC SULFATE 220 MG ( 50 ) CAPSULE PO SCH (08:38)
[2019-10-22] MEDS: PANTOPRAZOLE SODIUM 40 MG/VIAL IV SCH (08:38)
[2019-10-22] MEDS: MIDODRINE HCL 5MG TABLET NG SCH ×3 (09:00→16:13)
[2019-10-22 12:00] VITALS: BP 118/63
[2019-10-22 14:14] LABS: PLATELET ESTIMATE DECREASED
[2019-10-22] MEDS ORDERED: MORPHINE SULFATE 2 MG/ML CPJ (NOT FOR IM USE) IV PRN (14:15)
[2019-10-22 16:00] VITALS: BP 90/52
[2019-10-22 20:00] VITALS: BP 101/65
[2019-10-23] VITALS: BP 133/78
[2019-10-23 04:00] VITALS: BP 134/96
[2019-10-23] MEDS: DILTIAZEM HCL 90MG TABLET NG SCH ×3 (04:59→22:00)
[2019-10-23 08:00] VITALS: BP_SYST 123; BP_SYST 129; BP_DIAS 79
[2019-10-23] MEDS: MIDODRINE HCL 5MG TABLET NG SCH ×3 (09:00→16:53)
[2019-10-23 09:37] LABS: HEMATOCRIT. 25.1 % (36.0-48.0); HEMOGLOBIN. 8.6 g/dL (12.0-16.0); MEAN CORPUSCULAR HEMOGLOBIN 31.5 pg (28.0-32.0); MEAN CORPUSCULAR VOLUME 91.9 fL (81.0-99.0); MEAN PLATELET VOLUME 8.4 fl (7.4-10.4); PLATELET 130 x1000/uL (130-400); RED BLOOD CELL COUNT 2.74 mill/uL (4.2-5.4); RED CELL DISTRIBUTION WIDTH 17.6 % (11.6-14.6)
[2019-10-23] MEDS: PANTOPRAZOLE SODIUM 40 MG/VIAL IV SCH (09:37)
[2019-10-23] MEDS: ZINC SULFATE 220 MG ( 50 ) CAPSULE PO SCH (09:37)
[2019-10-23] MEDS: LORAZEPAM 2MG/ML CPJ IV PRN (10:33)
[2019-10-23 12:00] VITALS: BP 107/57
[2019-10-23 13:48] LABS: PLATELET ESTIMATE NORMAL
[2019-10-23 16:00] VITALS: BP_SYST 146; BP_SYST 94; BP_DIAS 54; BP_DIAS 56
[2019-10-23 20:00] VITALS: BP 102/61
[2019-10-24] VITALS: BP 96/67
[2019-10-24 04:00] VITALS: BP 100/65
[2019-10-24] MEDS: DILTIAZEM HCL 90MG TABLET NG SCH (05:44)
[2019-10-24 06:54] LABS: HEMATOCRIT. 25.6 % (36.0-48.0); HEMOGLOBIN. 8.8 g/dL (12.0-16.0); MEAN CORPUSCULAR HEMOGLOBIN 32.2 pg (28.0-32.0); MEAN CORPUSCULAR VOLUME 93.3 fL (81.0-99.0); MEAN PLATELET VOLUME 9.2 fl (7.4-10.4); PLATELET 117 x1000/uL (130-400); RED BLOOD CELL COUNT 2.74 mill/uL (4.2-5.4); RED CELL DISTRIBUTION WIDTH 17.7 % (11.6-14.6)
[2019-10-24 08:25] VITALS: BP 66/42
[2019-10-24] MEDS: MIDODRINE HCL 5MG TABLET NG SCH ×2 (09:00→13:00)
[2019-10-24] MEDS: ZINC SULFATE 220 MG ( 50 ) CAPSULE PO SCH (09:00)
[2019-10-24 09:19] VITALS: BP 80/53
[2019-10-24 09:27] VITALS: BP 116/68
[2019-10-24] MEDS: LORAZEPAM 2MG/ML CPJ IV PRN (11:18)
[2019-10-24] MEDS: PANTOPRAZOLE SODIUM 40 MG/VIAL IV SCH (11:19)
[2019-10-24 11:22] LABS: NUCLEATED RED BLOOD CELLS 2 /100 WBC
[2019-10-24 11:23] LABS: PLATELET ESTIMATE SLIGHTLY DECREASED
== END 2019-10-24 19:30 | disposition expired | DRG 720 ==
LOC: ER 23:23 → MICUSO 10-06 05:41 → ENRESERV 10-06 07:39 → 7WST 10-21 18:48
PROVIDERS: ADMIT Internal Medicine; ATTEND Internal Medicine
PROC: 5A1955Z Respiratory Ventilation, Greater than 96 Consecutive Hours (ICD-10-PCS; principal; 2019-10-06)
PROC: 0BH17EZ Insertion of Endotracheal Airway into Trachea, Via Natural or Artificial Opening (ICD-10-PCS; 2019-10-06)
PROC: 02HV33Z Insertion of Infusion Device into Superior Vena Cava, Percutaneous Approach (ICD-10-PCS; 2019-10-06)
PROC: 5A1D70Z Performance of Urinary Filtration, Intermittent, Less than 6 Hours Per Day (ICD-10-PCS; 2019-10-06)
PROC: 5A1D70Z Performance of Urinary Filtration, Intermittent, Less than 6 Hours Per Day (ICD-10-PCS; 2019-10-08)
PROC: 5A1D70Z Performance of Urinary Filtration, Intermittent, Less than 6 Hours Per Day (ICD-10-PCS; 2019-10-12)
PROC: 30233N1 Transfusion of Nonautologous Red Blood Cells into Peripheral Vein, Percutaneous Approach (ICD-10-PCS; 2019-10-14)
PROC: 5A1D70Z Performance of Urinary Filtration, Intermittent, Less than 6 Hours Per Day (ICD-10-PCS; 2019-10-15)
PROC: 5A1D70Z Performance of Urinary Filtration, Intermittent, Less than 6 Hours Per Day (ICD-10-PCS; 2019-10-18)
PROC: 5A1D70Z Performance of Urinary Filtration, Intermittent, Less than 6 Hours Per Day (ICD-10-PCS; 2019-10-20)
PROC: 5A1D70Z Performance of Urinary Filtration, Intermittent, Less than 6 Hours Per Day (ICD-10-PCS; 2019-10-24)
DX: A41.89 Other specified sepsis (principal); U07.1 COVID-19; J96.01 Acute respiratory failure with hypoxia; N17.0 Acute kidney failure with tubular necrosis; E43 Unspecified severe protein-calorie malnutrition; E87.4 Mixed disorder of acid-base balance; R65.21 Severe sepsis with septic shock; E72.20 Disorder of urea cycle metabolism, unspecified; I48.20 Chronic atrial fibrillation, unspecified; G93.41 Metabolic encephalopathy; I50.43 Acute on chronic combined systolic (congestive) and diastolic (congestive) heart failure; J12.89 Other viral pneumonia; I27.21 Secondary pulmonary arterial hypertension; I42.9 Cardiomyopathy, unspecified; D64.9 Anemia, unspecified; I13.2 Hypertensive heart and chronic kidney disease with heart failure and with stage 5 chronic kidney disease, or end stage renal disease; N18.6 End stage renal disease; E11.22 Type 2 diabetes mellitus with diabetic chronic kidney disease; E78.00 Pure hypercholesterolemia, unspecified; E78.5 Hyperlipidemia, unspecified; E87.8 Other disorders of electrolyte and fluid balance, not elsewhere classified; E87.5 Hyperkalemia; D72.810 Lymphocytopenia; E03.9 Hypothyroidism, unspecified; K21.9 Gastro-esophageal reflux disease without esophagitis; M48.061 Spinal stenosis, lumbar region without neurogenic claudication; F17.210 Nicotine dependence, cigarettes, uncomplicated; E66.9 Obesity, unspecified; E87.1 Hypo-osmolality and hyponatremia; I27.20 Pulmonary hypertension, unspecified; R31.29 Other microscopic hematuria; B97.89 Other viral agents as the cause of diseases classified elsewhere; J44.9 Chronic obstructive pulmonary disease, unspecified; Z66 Do not resuscitate; I77.6 Arteritis, unspecified; Z51.5 Encounter for palliative care; I48.92 Unspecified atrial flutter; Z79.82 Long term (current) use of aspirin; Z79.84 Long term (current) use of oral hypoglycemic drugs; Z79.899 Other long term (current) drug therapy; Z93.3 Colostomy status; Z68.41 Body mass index [BMI] 40.0-44.9, adult; Z79.01 Long term (current) use of anticoagulants; Z22.322 Carrier or suspected carrier of Methicillin resistant Staphylococcus aureus; Z78.1 Physical restraint status
CPT/HCPCS: 36415; 36600; 71045; 76937; 80048; 80053; 80076; 80202; 80307; 80320; 80329; 81003; 82140; 82270; 82375; 82550; 82728; 82805; 82962; 83520; 83605; 83615; 83735; 83880; 84100; 84132; 84145; 84484; 85025; 85379; 86038; 86060; 86140; 86256; 86480; 86705; 86706; 86709; 86803; 86850; 86900; 86920; 87070; 87340; 87635; 87804; 93005; 94003; 94640; 99291; C1752; C1769; C9113; J0610; J1160; J1650; J1815; J2060; J2250; J2370; J2543; J2920; J3010; J3370; J3475; J3490; J7030; J7040; J7050; J7060; J7131; J7512; P9016; G0480; U0003-CS